=== PATIENT | female | born 1965 | race Caucasian/White ===

== ENCOUNTER → 2016-05-11 | Outpatient (CLI) | payer BC ==
[~2016-05-11] MED LIST: CETI10TA84 PO; ETAN50IN2 SC; ETAN50IN3 SQ; HYDR12.56 PO; LOSA100T65 PO; LOSA50TA6 PO; MULT-506 PO; NAPR-201 PO; NORT25CA PO; NRV/5 PO; PRT/40 PO; TEMA15CA4 PO
--- NOTE | 2016-05-11 10:42 | DIAGNOSTIC IMAGING REPORT ---
TWO VIEW CHEST CLINICAL HISTORY: Acute bronchitis. FINDINGS: PA and lateral chest radiographs are compared to study dated 03/16/2016. The cardiomediastinal silhouette is unremarkable. The there is patchy airspace consolidation identified at the left lung base. This is best seen on the lateral projection. The right lung is grossly clear. No pleural effusion is identified. Calcified granulomas are observed. There is no pneumothorax. The bony thorax appears intact. IMPRESSION: There is left basilar airspace consolidation typical in appearance for pneumonia. Radiographic follow-up to resolution is recommended. Electronically signed by: Hilario Jo M.D. 05/11/2016 10:41 AM Dictated Date/Time: 05/11/2016 10:39 AM
== END | disposition home or self-care (01) ==
LOC: C.RAD1850 10:28
PROVIDERS: ATTEND Nurse Practitioner Family
DX: J20.9 Acute bronchitis, unspecified (principal); D89.9 Disorder involving the immune mechanism, unspecified; J39.3 Upper respiratory tract hypersensitivity reaction, site unspecified; R06.02 Shortness of breath; M06.9 Rheumatoid arthritis, unspecified; R06.2 Wheezing; J00 Acute nasopharyngitis [common cold]

== ENCOUNTER → 2016-07-16 | Outpatient (CLI) | payer BC ==
--- NOTE | 2016-07-16 17:26 | DIAGNOSTIC IMAGING REPORT ---
CHEST 2 VIEWS ROUTINE HISTORY: COUGH COMPARISON: Chest 05/11/2016. FINDINGS: Stable calcified granuloma within the left upper lobe. There is also a punctate calcified granuloma within the right upper lobe. No focal lung consolidations to suggest pneumonia. No evidence for pulmonary edema. No pleural effusions. No pneumothorax. The heart is stable in size. Tortuous thoracic aorta, unchanged. IMPRESSION: No acute process. Electronically signed by: Hemal Peralta M.D. 07/16/2016 5:24 PM Dictated Date/Time: 07/16/2016 5:22 PM
== END | disposition home or self-care (01) ==
LOC: C.RAD 17:07
PROVIDERS: ATTEND Family Medicine
DX: R05 Cough (principal)

== ENCOUNTER → 2016-08-23 | Outpatient (CLI) | payer BC ==
[~2016-08-23] MED LIST changes: +AMLO-114 PO; +BUSP5TAB59 PO; +CRG625 PO; +HYDR25TA4 PO; +NRT/25 PO; +PANT40TA2 PO; +PROM25TA16 PO; -PRT/40 PO
--- NOTE | 2016-08-23 14:54 | DIAGNOSTIC IMAGING REPORT ---
RIGHT HAND MIN 3 VIEWS CLINICAL HISTORY: Right hand pain status post trauma COMPARISON: None. DISCUSSION: No fractures or dislocations are visualized. IMPRESSION: No fractures or dislocations identified. Electronically signed by: Rafi Freeman M.D. 08/23/2016 2:52 PM Dictated Date/Time: 08/23/2016 2:51 PM
== END | disposition home or self-care (01) ==
LOC: C.RDSM 15:21
PROVIDERS: ATTEND Internal Medicine
DX: M79.641 Pain in right hand (principal)

== ENCOUNTER 2016-12-08 10:55 | Emergency (ER) | payer BC ==
[~2016-12-08] VITALS: Ht 154.9 cm; Wt 88.4 kg
[~2016-12-08 10:55] MED LIST changes: -AMLO-114 PO; -BUSP5TAB59 PO; -CETI10TA84 PO; -CRG625 PO; -ETAN50IN3 SQ; -HYDR25TA4 PO; -LOSA100T65 PO; -NRT/25 PO; -NRV/5 PO; -PANT40TA2 PO; -PROM25TA16 PO; +PRT/40 PO
[2016-12-08] MEDS ORDERED: LABETALOL HCL IV 5 MG/ML 20ML IV STA (11:14)
[2016-12-08 11:19] VITALS: Ht 154.9 cm; Wt 88.4 kg
[2016-12-08] MEDS ORDERED: NRV/5 PO (11:22)
[2016-12-08] MEDS ORDERED: ETAN50IN3 SQ (11:25)
[2016-12-08] MEDS ORDERED: LOSA100T65 PO (11:25)
[2016-12-08] MEDS ORDERED: CETI10TA84 PO (11:27)
[2016-12-08 11:35] LABS: BASO % 0.5 %; BASO ABS # 0.04 K/uL (0-0.2); COMPLETE YES; EOS % 2.5 %; HEMATOCRIT 42.5 % (37-47); IG% 0.3 %; LYMPH % 27.1 %; LYMPH ABS # 2.14 K/uL (1.2-3.4); MEAN CELL VOLUME 86.9 fL (80-100); MEAN CORPUSCULAR HEMOGLOBIN 30.9 pg (25-34); MEAN CORPUSCULAR HGB CONC 35.5 g/dl (32-36); MEAN PLATELET VOLUME 8.7 fL (7.4-10.4); MONO % 6.8 %; NEUT % 62.8 %; PLATELET COUNT 246 K/uL (130-400); RED BLOOD COUNT 4.89 M/uL (4.2-5.4); WHITE BLOOD COUNT 7.91 K/uL (4.8-10.8)
[2016-12-08 11:43] LABS: BUN/CREATININE RATIO 19.1 (10-20); CALCIUM 9.5 mg/dl (8.5-10.1); CREATININE 0.77 mg/dl (0.60-1.20); POTASSIUM 3.5 mmol/L (3.5-5.1)
[2016-12-08 11:54] LABS: CKMB/CK RATIO 1.1 (0-3.0); THYROID STIMULATING HORMONE 1.2 uIu/ml (0.300-4.500)
--- NOTE | 2016-12-08 11:54 | DIAGNOSTIC IMAGING REPORT ---
CHEST ONE VIEW PORTABLE CLINICAL HISTORY: Atypical chest pain and left arm pain. COMPARISON STUDY: 07/16/2016 FINDINGS: The heart is normal in size. There is aortic tortuosity. There is no failure. There is no focal pulmonary consolidation. There are no pleural effusions.[ IMPRESSION: No active disease in the chest. Electronically signed by: Rafi Freeman M.D. 12/08/2016 11:52 AM Dictated Date/Time: 12/08/2016 11:52 AM
--- NOTE | 2016-12-08 12:14 | EMERGENCY ROOM VISIT NOTE ---
History Report prepared by Patrice: Monique Russell Under the Supervision of: Dr. Iram Stanford M.D. First contact with patient: 11:08 Stated Complaint: ARM PAIN History of Present Illness The patient is a 51 year old female who presents to the Emergency Room with complaints of worsening left arm pain for the past few days. She developed tenderness and tightness to the inside of her left arm. She states that her pain started in her left armpit and now she is feeling very tight in her arm. The area is tender to push on it. She rates her pain as a 2/10 in severity. She denies any lumps. The patient denies any recent trauma or injury to the arm. She was shopping this morning and just felt "off." She reports family history of heart disease in young individuals. She became concerned that she was experiencing cardiac symptoms, so she went to a [id number]. The patient had an ECG done and was given aspirin. She was advised to come to the ED for further evaluation. The patient denies fever, cough, chest pain, shortness of breath, and abdominal pain. She denies any personal history of DVT or DM. She does not smoke or use OCP. She does have a history of RA and HTN. She took her usual medications today. Source of History: patient Onset: a few days ago Position: arm (left) Symptom Intensity: 2/10 Quality: other (tightness) Timing: worsening Modifying Factors (Worsening): other (palpation) Associated Symptoms: No fevers, No cough, No chest pain, No SOB, No abdominal pain Review of Systems See HPI for pertinent positives & negatives. A total of 10 systems reviewed and were otherwise negative. Past Medical & Surgical Medical Problems: (1) Deliveries by (2) IRON DEFIC ANEMIA NOS Family History FH: heart attack Social History Smoking Status: Never Smoker Alcohol Use: occasionally Marital Status: Housing Status: lives with family Occupation Status: employed Current/Historical Medications Scheduled Amlodipine Besylate (Amlodipine Besylate), 5 MG PO DAILY Cetirizine (Zyrtec), 10 MG PO QAM Etanercept (Enbrel Sureclick), 50 MG SQ WK Hydrochlorothiazide (Hctz), 12.5 MG PO QAM Losartan Potassium (Cozaar), 100 MG PO QAM Multivitamin (Multivitamin), 1 TAB PO QAM Nortriptyline (Pamelor), 25 MG PO HS Pantoprazole (Pantoprazole Sodium), 40 MG PO DAILY Scheduled PRN Temazepam (Restoril), 15 MG PO HS PRN for Headache Allergies Coded Allergies: No Known Allergies (Unverified , 12/08/16) Physical Exam Vital Signs Date Time Temp Pulse Resp B/P (MAP) Pulse Ox O2 Delivery O2 Flow Rate FiO2 12/08/16 13:30 36.7 95 17 132/94 92 12/08/16 13:15 95 17 132/94 92 12/08/16 13:10 97 10 98 12/08/16 13:05 94 10 99 12/08/16 13:00 94 10 128/85 99 12/08/16 12:55 92 10 99 12/08/16 12:50 93 11 100 12/08/16 12:45 91 9 118/83 97 12/08/16 12:40 91 6 99 12/08/16 12:35 94 13 99 12/08/16 12:30 91 12 124/85 97 12/08/16 12:25 91 19 95 12/08/16 12:20 93 12 96 12/08/16 12:15 90 10 117/80 99 12/08/16 12:10 88 12 100 12/08/16 12:05 104 29 12/08/16 12:00 80 9 141/98 99 12/08/16 11:55 86 12 99 12/08/16 11:52 144/94 12/08/16 11:50 82 13 100 12/08/16 11:46 138/95 12/08/16 11:45 80 18 100 12/08/16 11:42 142/86 12/08/16 11:41 132/94 12/08/16 11:40 101 20 100 12/08/16 11:35 110 11 100 12/08/16 11:32 100 Room Air 12/08/16 11:30 113 17 100 12/08/16 11:25 110 13 100 12/08/16 11:20 114 15 100 12/08/16 11:19 36.7 109 20 166/103 100 Room Air 12/08/16 11:18 166/103 12/08/16 11:15 112 12 99 12/08/16 11:10 106 10 100 12/08/16 11:05 118 12/08/16 11:05 118 15 99 12/08/16 10:57 176/107 Physical Exam Vital signs reviewed. Noted to be hypertensive. General: Well-appearing 51 year old female, in no significant distress. HEENT: No scleral icterus, PERRLA, neck supple. Atraumatic. Cardiovascular: Regular rate and rhythm, no extra sounds. Pulmonary: Clear to auscultation bilaterally, normal work of breathing. Abdomen: Soft, obese, nontender, nondistended, positive bowel sounds. Musculoskeletal: Atraumatic, no peripheral edema. Neurologic: Patient awake alert and oriented x 3, full strength in all 4 extremities. Cranial nerves 2 through 12 grossly intact. Skin: Warm, dry, no rash Medical Decision & Procedures ER Provider Diagnostic Interpretation: Radiology results as stated below per my review and radiologist interpretation: CHEST ONE VIEW PORTABLE CLINICAL HISTORY: Atypical chest pain and left arm pain. COMPARISON STUDY: 07/16/2016 FINDINGS: The heart is normal in size. There is aortic tortuosity. There is no failure. There is no focal pulmonary consolidation. There are no pleural effusions.[ IMPRESSION: No active disease in the chest. Electronically signed by: Rafi Freeman M.D. 12/08/2016 11:52 AM Dictated Date/Time: 12/08/2016 11:52 AM Laboratory Results 12/08/16 11:00 Red Blood Count 4.89, Mean Corpuscular Volume 86.9, Mean Corpuscular Hemoglobin 30.9, Mean Corpuscular Hemoglobin Concent 35.5, Mean Platelet Volume 8.7, Neutrophils (%) (Auto) 62.8, Lymphocytes (%) (Auto) 27.1, Monocytes (%) (Auto) 6.8, Eosinophils (%) (Auto) 2.5, Basophils (%) (Auto) 0.5, Neutrophils # (Auto) 4.97, Lymphocytes # (Auto) 2.14, Monocytes # (Auto) 0.54, Eosinophils # (Auto) 0.20, Basophils # (Auto) 0.04 12/08/16 11:00 Test 12/08/16 11:00 White Blood Count 7.91 K/uL (4.8-10.8) Red Blood Count 4.89 M/uL (4.2-5.4) Hemoglobin 15.1 g/dL (12.0-16.0) Hematocrit 42.5 % (37-47) Mean Corpuscular Volume 86.9 fL (80-100) Mean Corpuscular Hemoglobin 30.9 pg (25-34) Mean Corpuscular Hemoglobin Concent 35.5 g/dl (32-36) Platelet Count 246 K/uL (130-400) Mean Platelet Volume 8.7 fL (7.4-10.4) Neutrophils (%) (Auto) 62.8 % Lymphocytes (%) (Auto) 27.1 % Monocytes (%) (Auto) 6.8 % Eosinophils (%) (Auto) 2.5 % Basophils (%) (Auto) 0.5 % Neutrophils # (Auto) 4.97 K/uL (1.4-6.5) Lymphocytes # (Auto) 2.14 K/uL (1.2-3.4) Monocytes # (Auto) 0.54 K/uL (0.11-0.59) Eosinophils # (Auto) 0.20 K/uL (0-0.5) Basophils # (Auto) 0.04 K/uL (0-0.2) RDW Standard Deviation 39.8 fL (36.4-46.3) RDW Coefficient of Variation 12.5 % (11.5-14.5) Immature Granulocyte % (Auto) 0.3 % Immature Granulocyte # (Auto) 0.02 K/uL (0.00-0.02) Anion Gap 9.0 mmol/L (3-11) Est Creatinine Clear Calc Drug Dose 85.4 ml/min Estimated GFR () 102.2 Estimated GFR (Non- 88.2 BUN/Creatinine Ratio 19.1 (10-20) Calcium Level 9.5 mg/dl (8.5-10.1) Total Bilirubin 0.6 mg/dl (0.2-1) Direct Bilirubin 0.1 mg/dl (0-0.2) Aspartate Amino Transf (AST/SGOT) 25 U/L (15-37) Alanine Aminotransferase (ALT/SGPT) 43 U/L (12-78) Alkaline Phosphatase 81 U/L (45-117) Total Creatine Kinase 65 U/L (26-192) Creatine Kinase MB 0.7 ng/ml (0.5-3.6) Creatine Kinase MB Ratio 1.1 (0-3.0) Total Protein 8.3 gm/dl (6.4-8.2) Albumin 4.5 gm/dl (3.4-5.0) Thyroid Stimulating Hormone (TSH) 1.200 uIu/ml (0.300-4.500) Laboratory results per my review. 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 The patient was evaluated in room B4B. A complete history and physical examination was performed. 1114: Labetalol HCl 10 mg IV 1313: I reassessed the patient at this time. She is feeling better and resting comfortably. I discussed the results and treatment plan with the patient. I answered all pertaining questions that she had. She expressed understanding and verbalized agreement. The patient will be discharged home. Medical Decision Differential diagnoses includes acute coronary syndrome, pulmonary embolus, aortic dissection, musculoskeletal pain, pneumonia, pleural effusion, pneumothorax, gastritis, peptic ulcer disease. This pt was evaluated and appeared to be anxious but in no distress. IV access was obtained and lab work was drawn. Pt was placed on the electronic device monitor. EKG reveals old injury, but no evidence of acute ischemia. CXR is clear. Pt responded well to IV labetolol. She did receive [employer]. Cardiac enzymes are negative, ddimer is negative. Pt states she started norvasc 5 mg q hs a few weeks ago and has f/u next week with PCP. She was advised to increase norvasc to 10 mg q hs and f/u as scheduled. She is likely having symptomatic HTN. She will return to the ED for worsening of symptoms or any medical concerns. Medication Reconcilliation Current Medication List: was personally reviewed by me Blood Pressure Screening Patient's blood pressure: Elevated blood pressure Blood pressure disposition: Referred to PCP Impression Primary Impression: Hypertensive urgency Scribe Attestation The scribe's documentation has been prepared under my direction and personally reviewed by me in its entirety. I confirm that the note above accurately reflects all work, treatment, procedures, and medical decision making performed by me. Departure Information Dispostion Home / Self-Care Referrals No Doctor, Assigned (PCP) Forms IMPORTANT VISIT INFORMATION Additional Instructions Diagnosis: Hypertensive urgency Continue your medications as prescribed, increase the Norvasc to 10 mg daily. Maintain a low-sodium diet. Follow-up with your primary care provider this week for blood pressure recheck and medication management. Return to the ER for worsening of symptoms or any medical concerns.
[2016-12-08 13:30] VITALS: BP 132/94; PULSE 95; TEMP 36.7; O2SAT 92
[2016-12-10 09:17] LABS: POINT OF CARE TROPONIN I < 0.030 ng/ml (0-0.045)
== END 2016-12-08 13:30 | disposition home or self-care (01) ==
LOC: EDBD 10:55 → C.EDB 10:56
DX: I16.0 Hypertensive urgency (principal); I10 Essential (primary) hypertension; Z98.891 History of uterine scar from previous surgery; Z82.49 Family history of ischemic heart disease and other diseases of the circulatory system; Z79.899 Other long term (current) drug therapy

== ENCOUNTER → 2016-12-20 | Outpatient (CLI) | payer BC ==
[~2016-12-20] MED LIST changes: +CETI10TA84 PO; -ETAN50IN2 SC; +ETAN50IN3 SQ; +LOSA100T65 PO; -LOSA50TA6 PO; -NAPR-201 PO; +NRV/5 PO
--- NOTE | 2016-12-20 16:55 | DIAGNOSTIC IMAGING REPORT ---
PELVIS NO IV/ORAL CONT (CT) CLINICAL HISTORY: 51 years-old Female presenting with RIGHT PELVIC PAIN. TECHNIQUE: Multidetector CT of the pelvis was performed without the use of intravenous contrast. IV contrast: None. A dose lowering technique was used consistent with the principles of ALARA (as low as reasonably achievable). COMPARISON: None. CT DOSE (mGy.cm): The estimated cumulative dose is 457.50 mGy.cm. FINDINGS: Rn Quality topogram: Unremarkable. Bladder: Incompletely evaluated secondary to underdistention. Pelvic organs: Uterus surgically absent. Cystic 4.2 cm x 4.1 cm lesion in the right adnexa has an apparent mildly thick wall, although evaluation is limited by absence of intravenous contrast. The left ovary is normal appearing no normal-appearing right ovarian parenchyma is appreciated. This appears to abuts the rectosigmoid serosa and cecum. Postsurgical changes in the cul-de-sac from prior hysterectomy. Bowel: The rectosigmoid junction and mid sigmoid colon have somewhat tethered appearance, likely postsurgical adhesions. No bowel obstruction. Appendix not visualized. Peritoneal cavity: No free fluid or intraperitoneal gas. Vasculature: Normal noncontrast appearance of the iliac vessels. Lymph nodes: No enlarged lymph nodes in the pelvis. Abdominal wall: Normal. Musculoskeletal: Normal. IMPRESSION: 1. 4.2 cm cystic-appearing lesion in the right adnexa is likely ovarian in origin and appears somewhat thick-walled. This is a suspicious morphology and is incompletely evaluated in the absence of intravenous contrast. Further evaluation with pelvic ultrasound and gynecologic consultation to be considered. The report will be called/faxed according to standard departmental protocol. Electronically signed by: Mohan Degroot M.D. 12/20/2016 4:53 PM Dictated Date/Time: 12/20/2016 4:47 PM
== END | disposition home or self-care (01) ==
LOC: C.CTS 16:29
PROVIDERS: ATTEND Family Medicine
DX: R10.2 Pelvic and perineal pain (principal)

== ENCOUNTER → 2016-12-21 | Outpatient (CLI) | payer BC ==
--- NOTE | 2016-12-21 08:46 | DIAGNOSTIC IMAGING REPORT ---
PELVIC ULTRASOUND, TRANSABDOMINAL AND TRANSVAGINAL HISTORY: Right-sided pelvic pain. OVARIAN MASS NOTED ON CT SCAN COMPARISON: Pelvis CT 12/20/2016. FINDINGS: Uterus: Surgically absent. Right ovary: 5.0 x 4.4 x 3.4 cm. Left ovary: Obscured by overlying bowel gas. A 3.6 x 3.6 x 3.1 cm cystic lesion within the right ovary which demonstrates internal septations. There is also a 1.2 cm cyst within the right ovary. Normal color flow within the right ovary. Miscellaneous:Trace pelvic free fluid IMPRESSION: There are 2 cystic lesions within the right ovary with the largest measuring 3.6 cm. This contains internal septations and favors a complicated/hemorrhagic cyst. An endometrioma could also a similar appearance. However, this could be pathologic if the patient is postmenopausal. 2- 3 month pelvic ultrasound follow-up is recommended to ensure resolution. Gynecologic consultation is also recommended. Electronically signed by: Hemal Peralta M.D. 12/21/2016 8:44 AM Dictated Date/Time: 12/21/2016 8:41 AM
== END | disposition home or self-care (01) ==
LOC: C.ULTR 07:41
PROVIDERS: ATTEND Family Medicine
DX: N83.9 Noninflammatory disorder of ovary, fallopian tube and broad ligament, unspecified (principal); R10.2 Pelvic and perineal pain

== ENCOUNTER → 2017-02-07 | Outpatient (CLI) | payer BC | END | disposition home or self-care (01) | LOC: C.LAB1850 10:29 | PROVIDERS: ATTEND Obstetrics & Gynecology | DX: N83.209 Unspecified ovarian cyst, unspecified side (principal) ==

== ENCOUNTER 2017-03-23 18:15 | Emergency (ER) | payer BC ==
[~2017-03-23] VITALS: Ht 157.5 cm; Wt 82.6 kg
[~2017-03-23 18:15] MED LIST changes: +PANT40TA2 PO; -PRT/40 PO
[2017-03-23 18:18] VITALS: TEMP 36.8; Ht 157.5 cm; Wt 82.6 kg
[2017-03-23] MEDS ORDERED: GI COCKTAIL PO STA (18:45)
[2017-03-23 18:46] VITALS: O2SAT 98
[2017-03-23] MEDS ORDERED: ALUMINUM/MAGNESIUM SUSP 30 ML UDC ONE (18:51)
[2017-03-23] MEDS ORDERED: LIDOCAINE HCL 2% VISC SOLN 20 ML UDC ONE (18:51)
[2017-03-23 19:03] LABS: BASO % 0.4 %; BASO ABS # 0.04 K/uL (0-0.2); COMPLETE YES; EOS % 3.4 %; HEMATOCRIT 43.2 % (37-47); IG% 0.1 %; LYMPH % 28.1 %; LYMPH ABS # 2.51 K/uL (1.2-3.4); MEAN CELL VOLUME 87.6 fL (80-100); MEAN CORPUSCULAR HGB CONC 34.3 g/dl (32-36); MEAN PLATELET VOLUME 8.9 fL (7.4-10.4); MONO % 6.6 %; NEUT % 61.4 %; PLATELET COUNT 225 K/uL (130-400); RED BLOOD COUNT 4.93 M/uL (4.2-5.4); WHITE BLOOD COUNT 8.94 K/uL (4.8-10.8)
--- NOTE | 2017-03-23 19:10 | DIAGNOSTIC IMAGING REPORT ---
CHEST ONE VIEW PORTABLE CLINICAL HISTORY: Atypical chest pain COMPARISON STUDY: 12/08/2016 FINDINGS: The cardiac and mediastinal contours remain stable. There is stable aortic tortuosity/ectasia. There is no failure. There is no focal pulmonary consolidation. There are no pleural effusions.[ IMPRESSION: No active disease in the chest. Electronically signed by: Rafi Freeman M.D. 03/23/2017 7:09 PM Dictated Date/Time: 03/23/2017 7:08 PM
[2017-03-23 19:17] LABS: PARTIAL THROMBOPLASTIN RATIO 1.1; PROTHROMBIN TIME (PATIENT) 10.7 SECONDS (9.0-12.0)
[2017-03-23 19:22] LABS: BUN/CREATININE RATIO 21.8 (10-20); CREATININE 0.67 mg/dl (0.60-1.20)
[2017-03-23 19:31] LABS: ALB/GLOB RATIO 1.1 (0.9-2); CKMB/CK RATIO 1.5 (0-3.0); THYROID STIMULATING HORMONE 3.03 uIu/ml (0.300-4.500)
[2017-03-23] MEDS ORDERED: NRT/25 PO (19:42)
[2017-03-23] MEDS ORDERED: PROM25TA16 PO (19:42)
[2017-03-23] MEDS ORDERED: CRG625 PO (19:42)
[2017-03-23] MEDS ORDERED: OXYCODONE HCL IR 5 MG TAB (IMMEDIATE RELEASE) PO STA (19:53)
[2017-03-23] MEDS ORDERED: CARVEDILOL 6.25 MG TAB PO STA (19:54)
[2017-03-23 20:12] LABS: MANUAL MICROSCOPIC REQUIRED? NO; REVIEW REQ? NO; URINE APPEARANCE CLEAR (CLEAR); URINE BILIRUBIN NEG (NEG); URINE COLOR YELLOW; URINE NITRITE NEG (NEG); URINE PH 6.5 (4.5-7.5); URINE SPECIFIC GRAVITY 1.011 (1.000-1.030); UROBILINOGEN NEG (NEG); ZZUR CULT IF INDIC CLEAN CATCH NO
[2017-03-23] MEDS ORDERED: POTASSIUM CHLORIDE 10 MEQ TABCR PO STA (21:25)
[2017-03-23 21:47] VITALS: BP 148/100; PULSE 95; O2SAT 95
--- NOTE | 2017-03-23 21:49 | EMERGENCY ROOM VISIT NOTE ---
History First contact with patient: 18:23 Chief Complaint: CHEST PAIN Stated Complaint: HIGH BLOOD PRESSURE, CHEST TIGHTNESS Nursing Triage Summary: Pt of middle of chest pain that began a brief time ago, but it could be acid reflux from nachos. Concerned because BP has been going up and was 170/120 at home. Takes BP meds and they've been changing them. Headache History of Present Illness The patient is a 51 year old female who presents to the Emergency Room via private vehicle accompanied by male with complaints of "high blood pressure, chest tightness". The patient states that tonight around 5:30 PM she developed substernal chest tightness shortly after eating not shows and cheese. She is concerned it could be reflux but because of her high blood pressure in the 150/ 100 region it could be heart related therefore prompting her visit here today. She states that she recently had an echo performed shortly after her visit here in December secondary to be hypertensive urgency. She believes that it was normal. She states that she sees a grease monkey as well as her family doctor. They have been adjusting her blood pressure medication. She unfortunately did have a very successful blood pressure medication but it caused side effects such as reflux therefore she was switched and since then has been experiencing some troubles managing her blood pressure. She denies any history of blood clots or heart problems. Review of Systems A complete 10-point Review of Systems was discussed with the patient, with pertinent positives and negatives listed in the History of Present Illness. All remaining Review of Systems questions can be considered negative unless otherwise specified. Past Medical/Surgical History Medical Problems: (1) Deliveries by (2) IRON DEFIC ANEMIA NOS Family History FH: heart attack Social History Smoking Status: Never Smoker Alcohol Use: occasionally Marital Status: Housing Status: lives with family Occupation Status: employed Current/Historical Medications Scheduled Carvedilol (Carvedilol), 6.25 MG PO BID Cetirizine (Zyrtec), 10 MG PO QAM Etanercept (Enbrel Sureclick), 50 MG SQ WK Hydrochlorothiazide (Hctz), 12.5 MG PO QAM Losartan Potassium (Cozaar), 100 MG PO QAM Multivitamin (Multivitamin), 1 TAB PO QAM Nortriptyline Hcl (Pamelor), 25 MG PO HS Pantoprazole (Pantoprazole Sodium), 40 MG PO DAILY Scheduled PRN Promethazine HCl (Promethazine HCl), 25 MG PO UD PRN for Migraine Physical Exam Vital Signs Date Time Temp Pulse Resp B/P (MAP) Pulse Ox O2 Delivery O2 Flow Rate FiO2 03/23/17 21:47 95 20 148/100 95 Room Air 03/23/17 20:47 95 18 152/94 97 Room Air 03/23/17 20:00 99 18 143/104 96 Room Air 03/23/17 19:29 106 03/23/17 18:46 98 Room Air 03/23/17 18:18 94 Room Air 03/23/17 18:18 36.8 110 20 189/109 99 Room Air Physical Exam VITAL SIGNS - Vital signs and nursing notes were reviewed. Stable. Hypertensive and tachycardic. GENERAL -51-year-old female appearing her stated age who is in no acute distress. Communicates well with provider and answers questions appropriately. SKIN - Without rashes. No petechiae rashes. HEAD - NC/AT. EYES - Sclera anicteric. EARS - No deformities of external structures noted on gross examination bilaterally. NOSE - Midline and without cyanosis. No epistaxis or purulent drainage noted. MOUTH/OROPHARYNX - Without perioral cyanosis. LUNGS - Chest wall symmetric without accessory muscle use, intercostals retractions, or central cyanosis. Normal vesicular breath sounds CTA B/L. No wheezes, rales, or rhonchi appreciated. CARDIAC - RRR with S1/S2. No murmur, rubs, or gallops appreciated. Anterior chest pain is not reproducible upon palpation. ABDOMEN - Abdominal contour normal without pulsations or visible masses. BS normoactive all four quadrants. No tenderness, palpable masses, hepatosplenomegaly, or ascites noted. Medical Decision & Procedures ER Provider Diagnostic Interpretation: CHEST ONE VIEW PORTABLE CLINICAL HISTORY: Atypical chest pain COMPARISON STUDY: 12/08/2016 FINDINGS: The cardiac and mediastinal contours remain stable. There is stable aortic tortuosity/ectasia. There is no failure. There is no focal pulmonary consolidation. There are no pleural effusions.[ IMPRESSION: No active disease in the chest. Electronically signed by: Rafi Freeman M.D. 03/23/2017 7:09 PM Dictated Date/Time: 03/23/2017 7:08 PM Laboratory Results 03/23/17 18:43 Red Blood Count 4.93, Mean Corpuscular Volume 87.6, Mean Corpuscular Hemoglobin 30.0, Mean Corpuscular Hemoglobin Concent 34.3, Mean Platelet Volume 8.9, Neutrophils (%) (Auto) 61.4, Lymphocytes (%) (Auto) 28.1, Monocytes (%) (Auto) 6.6, Eosinophils (%) (Auto) 3.4, Basophils (%) (Auto) 0.4, Neutrophils # (Auto) 5.49, Lymphocytes # (Auto) 2.51, Monocytes # (Auto) 0.59, Eosinophils # (Auto) 0.30, Basophils # (Auto) 0.04 03/23/17 18:43 Test 03/23/17 18:43 03/23/17 18:50 03/23/17 20:03 03/23/17 20:41 White Blood Count 8.94 K/uL (4.8-10.8) Red Blood Count 4.93 M/uL (4.2-5.4) Hemoglobin 14.8 g/dL (12.0-16.0) Hematocrit 43.2 % (37-47) Mean Corpuscular Volume 87.6 fL (80-100) Mean Corpuscular Hemoglobin 30.0 pg (25-34) Mean Corpuscular Hemoglobin Concent 34.3 g/dl (32-36) Platelet Count 225 K/uL (130-400) Mean Platelet Volume 8.9 fL (7.4-10.4) Neutrophils (%) (Auto) 61.4 % Lymphocytes (%) (Auto) 28.1 % Monocytes (%) (Auto) 6.6 % Eosinophils (%) (Auto) 3.4 % Basophils (%) (Auto) 0.4 % Neutrophils # (Auto) 5.49 K/uL (1.4-6.5) Lymphocytes # (Auto) 2.51 K/uL (1.2-3.4) Monocytes # (Auto) 0.59 K/uL (0.11-0.59) Eosinophils # (Auto) 0.30 K/uL (0-0.5) Basophils # (Auto) 0.04 K/uL (0-0.2) RDW Standard Deviation 39.4 fL (36.4-46.3) RDW Coefficient of Variation 12.3 % (11.5-14.5) Immature Granulocyte % (Auto) 0.1 % Immature Granulocyte # (Auto) 0.01 K/uL (0.00-0.02) Prothrombin Time 10.7 SECONDS (9.0-12.0) Prothromb Time International Ratio 1.0 (0.9-1.1) Activated Partial Thromboplast Time 29.4 SECONDS (21.0-31.0) Partial Thromboplastin Ratio 1.1 D-Dimer < 190 ug/L FEU (0-500) Anion Gap 8.0 mmol/L (3-11) Est Creatinine Clear Calc Drug Dose 96.7 ml/min Estimated GFR () 116.3 Estimated GFR (Non- 100.4 BUN/Creatinine Ratio 21.8 (10-20) Calcium Level 9.0 mg/dl (8.5-10.1) Magnesium Level 2.0 mg/dl (1.8-2.4) Total Bilirubin 0.6 mg/dl (0.2-1) Aspartate Amino Transf (AST/SGOT) 15 U/L (15-37) Alanine Aminotransferase (ALT/SGPT) 25 U/L (12-78) Alkaline Phosphatase 67 U/L (45-117) Total Creatine Kinase 52 U/L (26-192) Creatine Kinase MB 0.8 ng/ml (0.5-3.6) Creatine Kinase MB Ratio 1.5 (0-3.0) Total Protein 8.0 gm/dl (6.4-8.2) Albumin 4.2 gm/dl (3.4-5.0) Globulin 3.8 gm/dl (2.5-4.0) Albumin/Globulin Ratio 1.1 (0.9-2) Thyroid Stimulating Hormone (TSH) 3.030 uIu/ml (0.300-4.500) Bedside Troponin I < 0.030 ng/ml (0-0.045) Urine Color YELLOW Urine Appearance CLEAR (CLEAR) Urine pH 6.5 (4.5-7.5) Urine Specific [place] 1.011 (1.000-1.030) Urine Protein NEG (NEG) Urine Glucose (UA) NEG (NEG) Urine Ketones NEG (NEG) Urine Occult Blood NEG (NEG) Urine Nitrite NEG (NEG) Urine Bilirubin NEG (NEG) Urine Urobilinogen NEG (NEG) Urine Leukocyte Esterase NEG (NEG) Troponin I 0.019 ng/ml (0-0.045) Medications Administered Medications (Trade) Dose Ordered Sig/Rosaura Route Start Time Stop Time Status Last Admin Dose Admin Miscellaneous Medication (Gi Cocktail) 24 ml NOW STAT PO 03/23/17 18:45 03/23/17 18:46 DC 03/23/17 18:53 24 ML Oxycodone HCl (Roxicodone Immediate Rel Tab) 5 mg NOW STAT PO 03/23/17 19:53 03/23/17 19:54 DC 03/23/17 20:01 5 MG Carvedilol (Coreg Tab) 6.25 mg NOW STAT PO 03/23/17 19:54 03/23/17 19:55 DC 03/23/17 20:11 6.25 MG Potassium Chloride (Klor-Con M10) 40 meq NOW STAT PO 03/23/17 21:25 03/23/17 21:26 DC 03/23/17 21:47 40 MEQ Medical Decision Patient was seen and evaluated as above. She presents to us today with chest pain. Began shortly prior to arrival. Shortly is concerning for that of acid reflux however other emergent etiologies health may be entertained. Patient's bedside EKG reveals sinus tachycardia, rate of 114 bpm. There is a nonspecific ST abnormality and when compared with EKG of 12/08/2016 the PACs are no longer present. There appears to be no significant change when compared to previous EKG. There is no evidence of ST segment elevation myocardial infarction. Troponin and d-dimer were negative. Chest x-ray stable. No acute process on the chest x-ray. CBC reveals no concerning leukocytosis or anemia. Coags normal. D-dimer negative. Patient metabolic panel does reveal potassium low at 3. No evidence of kidney or liver failure. Patient troponin is negative. Troponin repeat does reveal a slight increase of 0.003. I discussed this with the attending physician and this was found to be statistically insignificant. Patient did have some relief of her pain with the GI cocktail. Again I suspect this is likely from acid reflux. Patient urine is negative. I discussed with the patient closely inpatient management versus outpatient with close follow-up and the preference was on having her go home to follow-up with the family doctor. I believe this is safe and appropriate. She is at this time believed to be at low risk given that she had a recent echocardiogram and follows with cardiology closely. Patient was educated upon management, educated upon worrisome symptoms in which to return, had questions as to discharge, and was discharged home in good condition. In evaluation treatment this patient the following differential diagnoses were entertained: SC, PE, acid reflux, pericarditis, costochondritis, among others. Impression Primary Impression: Chest pain Additional Impression: Hypokalemia Departure Information Dispostion Home / Self-Care Condition GOOD Referrals Taylor Cross (PCP) Patient Instructions [facility] Additional Instructions You have been treated in the Emergency Department your chest Pain. Laboratory results and imaging studies have ruled out any emergent causes for your chest pain which would warrant admission or surgery. I recommend continuing your prescribed medications. For pain control, you can use the following phex-ruf-hidiodp medicines (if >12 yo): - Regular strength (325mg/tab) Tylenol (acetaminophen) 2 tabs every 4-6 hours as needed. Do not exceed 12 tablets in a 24 hour period. Avoid taking more than 3 grams (3000 mg) of Tylenol per day. This includes any other sources of acetaminophen you may take on a regular basis. - Regular strength (200 mg/tab) Advil (ibuprofen) 1-2 tabs every 4-6 hours as needed. Do not exceed a dose of 3200 mg per day. Drink plenty of water and stay well hydrated. As with any trip to the Emergency Department, you should follow-up with your Primary Care Provider from today's visit. Return to the emergency department if your symptoms persist despite treatment plan outlined above or if the following symptoms occur: increased fevers, chills , worsening nausea/vomiting, blood in your stool or urine. Problem Qualifiers
== END 2017-03-23 22:03 | disposition home or self-care (01) ==
LOC: C.EDB 18:17
DX: R07.9 Chest pain, unspecified (principal); E87.6 Hypokalemia; Z98.891 History of uterine scar from previous surgery

== ENCOUNTER 2017-04-03 16:21 | Emergency (ER) | payer BC ==
[~2017-04-03] VITALS: Ht 157.5 cm; Wt 80.8 kg
[~2017-04-03 16:21] MED LIST changes: +CRG625 PO; -NORT25CA PO; +NRT/25 PO; -NRV/5 PO; +PROM25TA16 PO; -TEMA15CA4 PO
[2017-04-03 16:24] VITALS: TEMP 36.4; Ht 157.5 cm; Wt 80.8 kg
[2017-04-03 16:29] VITALS: O2SAT 97
[2017-04-03] MEDS ORDERED: LORAZEPAM 2 MG/ML 1 ML VIAL IV STA (16:30)
[2017-04-03] MEDS ORDERED: SODIUM CHLORIDE 0.9% 1000ML 1,000 ML IV STA (16:30)
--- NOTE | 2017-04-03 16:48 | DIAGNOSTIC IMAGING REPORT ---
CHEST ONE VIEW PORTABLE HISTORY: 51 years-old Female CHEST PAIN acute atypical chest pain with chest tightness COMPARISON: Chest radiograph 03/23/2017 TECHNIQUE: Portable upright AP view of the chest FINDINGS: Cardiomediastinal and hilar silhouettes are within normal limits. There is tortuosity of the thoracic aorta. There is no pneumothorax, pleural effusion, focal airspace consolidation or overt pulmonary edema. The bones of the chest are grossly intact. Degenerative changes are seen within the shoulders and spine. IMPRESSION: No acute cardiopulmonary process. The above report was generated using voice recognition software. It may contain grammatical, syntax or spelling errors. Electronically signed by: Phi Rios M.D. 04/03/2017 4:46 PM Dictated Date/Time: 04/03/2017 4:45 PM
[2017-04-03 16:49] LABS: BASO % 0.3 %; BASO ABS # 0.04 K/uL (0-0.2); COMPLETE YES; EOS % 1.1 %; HEMATOCRIT 43.3 % (37-47); IG% 0.2 %; LYMPH % 19.2 %; LYMPH ABS # 2.79 K/uL (1.2-3.4); MEAN CELL VOLUME 86.8 fL (80-100); MEAN CORPUSCULAR HEMOGLOBIN 30.7 pg (25-34); MEAN CORPUSCULAR HGB CONC 35.3 g/dl (32-36); MONO % 5.5 %; NEUT % 73.7 %; PLATELET COUNT 271 K/uL (130-400); RED BLOOD COUNT 4.99 M/uL (4.2-5.4); WHITE BLOOD COUNT 14.55 K/uL (4.8-10.8)
[2017-04-03 16:59] LABS: PROTHROMBIN TIME (PATIENT) 10.5 SECONDS (9.0-12.0)
[2017-04-03] MEDS ORDERED: AMLO-114 PO (17:09)
[2017-04-03] MEDS ORDERED: HYDR25TA4 PO (17:09)
[2017-04-03] MEDS ORDERED: BUSP5TAB59 PO (17:09)
[2017-04-03 17:15] LABS: ALT/SGPT 26 U/L (12-78); BLOOD UREA NITROGEN 17 mg/dl (7-18); BUN/CREATININE RATIO 24.2 (10-20); CALCIUM 9.8 mg/dl (8.5-10.1); CARBON DIOXIDE 25 mmol/L (21-32); CHLORIDE 99 mmol/L (98-107); CREATININE 0.72 mg/dl (0.60-1.20); GLUCOSE 111 mg/dl (70-99); MAGNESIUM 2.2 mg/dl (1.8-2.4); POTASSIUM 2.8 mmol/L (3.5-5.1); SODIUM 135 mmol/L (136-145)
--- NOTE | 2017-04-03 17:22 | EMERGENCY ROOM VISIT NOTE ---
History Report prepared by Patrice: Mary Ellen Sullivan Under the Supervision of: Dr. Gary Johnson D.O. First contact with patient: 16:25 Chief Complaint: CARDIAC ASSESSMENT Stated Complaint: HEART RATE FLUCTUATING;CHEST TIGHTNESS History of Present Illness The patient is a 51 year old female who presents to the Emergency Room with complaints of persistent heart palpitations starting earlier today. The patient has recently been having trouble with her blood pressure. Her medications are being adjusted. She is currently on amlodipine and losartan. Today she could feel her heart racing. Her Fitbit showed that her heart rate was fluctuating from high to low. It was going up into the 120s at times. She reports some chest tightness. She had some SOB earlier, but currently does not. She does feel anxious. She has been having dizzy spells. She denies any chest pain with walking, pain or swelling in the legs, diarrhea, vomiting, fever, or urinary symptoms. He denies any recent travel. She was recently started on BuSpar. She had a hysterectomy 3 years ago for fibroids. She denies any history of cancer, blood clots, AL, irregular heart beat, diabetes, or other medical problems. She admits to occasional alcohol use. She denies any tobacco use. She has had an echo before which shows a slightly leaky left ventricle. Source of History: patient, spouse/significant other Onset: earlier today Position: other (global) Quality: other (heart palpitations) Timing: other (persistent) Associated Symptoms: + chest pain, + SOB, No fevers, No vomiting, No diarrhea, No urinary symptoms Note: Pt reports dizzy spells and anxiety. Pt denies leg swelling/pain. Review of Systems See HPI for pertinent positives & negatives. A total of 10 systems reviewed and were otherwise negative. Past Medical & Surgical Medical Problems: (1) Deliveries by (2) IRON DEFIC ANEMIA NOS Family History FH: heart attack Social History Smoking Status: Never Smoker Alcohol Use: occasionally Marital Status: Housing Status: lives with family Occupation Status: employed Current/Historical Medications Scheduled Amlodipine (Norvasc), 10 MG PO HS Buspirone Hcl (Buspirone Hcl), 5 MG PO BID Cetirizine (Zyrtec), 10 MG PO QAM Etanercept (Enbrel Sureclick), 50 MG SQ WK Hydrochlorothiazide (Hctz), 25 MG PO QAM Losartan Potassium (Cozaar), 100 MG PO QAM Multivitamin (Multivitamin), 1 TAB PO QAM Nortriptyline Hcl (Pamelor), 25 MG PO HS Pantoprazole (Pantoprazole Sodium), 40 MG PO DAILY Scheduled PRN Promethazine HCl (Promethazine HCl), 25 MG PO UD PRN for Migraine Allergies Coded Allergies: No Known Allergies (Unverified , 04/03/17) Physical Exam Vital Signs Date Time Temp Pulse Resp B/P (MAP) Pulse Ox O2 Delivery O2 Flow Rate FiO2 04/03/17 19:53 96 20 115/86 97 Room Air 04/03/17 18:37 70 18 118/78 97 Room Air 04/03/17 16:40 118 04/03/17 16:29 97 Room Air 04/03/17 16:29 97 04/03/17 16:24 36.4 131 18 166/97 95 Room Air Physical Exam GENERAL: Patient is awake, alert, and in no acute distress. Patient is resting comfortably and showing no signs of anxiety EYES: The conjunctivae are clear. The pupils are round and reactive. EARS, NOSE, MOUTH AND THROAT: The nose is without any evidence of any deformity. Mucous membranes are moist tongue is midline NECK: The neck is nontender and supple. RESPIRATORY: Normal respiratory effort is noted there is no evidence of wheezing rhonchi or rales CARDIOVASCULAR: Tachycardic but regular. No definite murmur noted to auscultation. GASTROINTESTINAL: The abdomen is soft. Bowel sounds are present in all quadrants. Abdomen is nontender MUSCULOSKELETAL/EXTREMITIES: There is no evidence of gross deformity full range of motion is noted in the hips and shoulders SKIN: There is no obvious evidence of any rash. There are no petechiae, pallor or cyanosis noted. NEUROLOGIC: Patient is awake alert and oriented x3 Medical Decision & Procedures ER Provider Diagnostic Interpretation: X-ray results as stated below per interpretation by me and the radiologist. CHEST ONE VIEW PORTABLE HISTORY: 51 years-old Female CHEST PAIN acute atypical chest pain with chest tightness COMPARISON: Chest radiograph 03/23/2017 TECHNIQUE: Portable upright AP view of the chest FINDINGS: Cardiomediastinal and hilar silhouettes are within normal limits. There is tortuosity of the thoracic aorta. There is no pneumothorax, pleural effusion, focal airspace consolidation or overt pulmonary edema. The bones of the chest are grossly intact. Degenerative changes are seen within the shoulders and spine. IMPRESSION: No acute cardiopulmonary process. The above report was generated using voice recognition software. It may contain grammatical, syntax or spelling errors. Electronically signed by: Phi Rios M.D. 04/03/2017 4:46 PM Dictated Date/Time: 04/03/2017 4:45 PM Laboratory Results 04/03/17 16:35 Red Blood Count 4.99, Mean Corpuscular Volume 86.8, Mean Corpuscular Hemoglobin 30.7, Mean Corpuscular Hemoglobin Concent 35.3, Mean Platelet Volume 9.0, Neutrophils (%) (Auto) 73.7, Lymphocytes (%) (Auto) 19.2, Monocytes (%) (Auto) 5.5, Eosinophils (%) (Auto) 1.1, Basophils (%) (Auto) 0.3, Neutrophils # (Auto) 10.73, Lymphocytes # (Auto) 2.79, Monocytes # (Auto) 0.80, Eosinophils # (Auto) 0.16, Basophils # (Auto) 0.04 04/03/17 16:35 Test 04/03/17 16:35 White Blood Count 14.55 K/uL (4.8-10.8) Red Blood Count 4.99 M/uL (4.2-5.4) Hemoglobin 15.3 g/dL (12.0-16.0) Hematocrit 43.3 % (37-47) Mean Corpuscular Volume 86.8 fL (80-100) Mean Corpuscular Hemoglobin 30.7 pg (25-34) Mean Corpuscular Hemoglobin Concent 35.3 g/dl (32-36) Platelet Count 271 K/uL (130-400) Mean Platelet Volume 9.0 fL (7.4-10.4) Neutrophils (%) (Auto) 73.7 % Lymphocytes (%) (Auto) 19.2 % Monocytes (%) (Auto) 5.5 % Eosinophils (%) (Auto) 1.1 % Basophils (%) (Auto) 0.3 % Neutrophils # (Auto) 10.73 K/uL (1.4-6.5) Lymphocytes # (Auto) 2.79 K/uL (1.2-3.4) Monocytes # (Auto) 0.80 K/uL (0.11-0.59) Eosinophils # (Auto) 0.16 K/uL (0-0.5) Basophils # (Auto) 0.04 K/uL (0-0.2) RDW Standard Deviation 39.7 fL (36.4-46.3) RDW Coefficient of Variation 12.4 % (11.5-14.5) Immature Granulocyte % (Auto) 0.2 % Immature Granulocyte # (Auto) 0.03 K/uL (0.00-0.02) Prothrombin Time 10.5 SECONDS (9.0-12.0) Prothromb Time International Ratio 1.0 (0.9-1.1) Activated Partial Thromboplast Time 27.1 SECONDS (21.0-31.0) Partial Thromboplastin Ratio 1.0 Anion Gap 11.0 mmol/L (3-11) Est Creatinine Clear Calc Drug Dose 89.0 ml/min Estimated GFR () 110.8 Estimated GFR (Non- 95.6 BUN/Creatinine Ratio 24.2 (10-20) Calcium Level 9.8 mg/dl (8.5-10.1) Magnesium Level 2.2 mg/dl (1.8-2.4) Total Bilirubin 0.5 mg/dl (0.2-1) Direct Bilirubin 0.1 mg/dl (0-0.2) Aspartate Amino Transf (AST/SGOT) 18 U/L (15-37) Alanine Aminotransferase (ALT/SGPT) 26 U/L (12-78) Alkaline Phosphatase 79 U/L (45-117) Total Creatine Kinase 64 U/L (26-192) Creatine Kinase MB < 0.5 ng/ml (0.5-3.6) Creatine Kinase MB Ratio (0-3.0) Troponin I < 0.015 ng/ml (0-0.045) Total Protein 8.3 gm/dl (6.4-8.2) Albumin 4.4 gm/dl (3.4-5.0) Lipase 145 U/L (73-393) Thyroid Stimulating Hormone (TSH) 1.980 uIu/ml (0.300-4.500) Free Thyroxine 1.22 ng/dl (0.80-1.60) Laboratory results per my review. Medications Administered Medications (Trade) Dose Ordered Sig/Rosaura Route Start Time Stop Time Status Last Admin Dose Admin Sodium Chloride 1,000 ml @ 999 mls/hr Q1H1M STAT IV 04/03/17 16:30 04/03/17 17:30 DC 04/03/17 16:30 999 MLS/HR Lorazepam (Ativan Inj) 0.5 mg NOW STAT IV 04/03/17 16:30 04/03/17 16:32 DC 04/03/17 16:56 0.5 MG Potassium Chloride (Kcl 10 Meq / Wtr) 10 meq NOW STAT IV 04/03/17 17:31 04/03/17 17:32 DC 04/03/17 17:31 10 MEQ Potassium Chloride (Klor-Con M10) 20 meq NOW STAT PO 04/03/17 17:31 04/03/17 17:32 DC 04/03/17 18:12 20 MEQ Potassium Chloride 10 meq/ Prmx 100 ml @ 100 mls/hr ONE ONCE IV 04/03/17 18:30 04/03/17 19:29 DC 04/03/17 18:48 100 MLS/HR ECG Indication: palpitations Rate (beats per minute): 127 Rhythm: sinus tachycardia Findings: no ectopy, other (no acute ST segment abnormality) Comparison ECG Date: 23-Mar-2017 Change: no significant change ED Course 1627: The patient was evaluated in room A11B. A complete history and physical examination were performed. 1630: Ativan Inj 0.5 mg IV, NSS 1000 ml @ 999 mls/hr IV. 1731: Potassium Chloride 10 meq IV, Potassium Chloride 20 meq PO. 1830: Potassium Chloride 10 meq/Prmx 100 ml @ 100 mls/hr IV. 2000: Upon reevaluation, the patient is resting comfortably. I discussed the results and treatment plan with her. She verbalized agreement of the treatment plan. She was discharged home. Medical Decision Prior records/ancillary studies reviewed. Triage Nursing notes reviewed. Additional history obtained from family. The patient's history was concerning for palpitations. Differential diagnosis: Etiologies such as premature contractions, electrolyte abnormality, cardiac dysrhythmia, thyroid dysfunction, pulmonary embolism, infection, gastrointestinal, as well as others were entertained. The patient is a 51-year-old female who presented to emergency department for evaluation palpitations and chest discomfort. The patient has had similar symptoms in the past she states she's had a workup previously which was not positive for heart attack or an acute coronary syndrome. The patient was found have hypokalemia in the emergency department. The patient was treated with IV fluids and IV potassium in the emergency department. She was reevaluated multiple times. On subsequent reevaluation she was feeling much better. I discussed the patient's laboratory and radiographic studies with her and her significant other. She was encouraged to rest and avoid any strenuous activity. She was also encouraged to continue all medications as prescribed and follow-up with her primary care physician as soon as possible. Otherwise she was encouraged to return to emergency department immediately if symptoms change worsen or the need arises. Medication Reconcilliation Current Medication List: was personally reviewed by me Blood Pressure Screening Patient's blood pressure: Normal blood pressure Blood pressure disposition: Did not require urgent referral Impression Primary Impression: Palpitation Additional Impressions: Sinus tachycardia Hypokalemia Scribe Attestation The scribe's documentation has been prepared under my direction and personally reviewed by me in its entirety. I confirm that the note above accurately reflects all work, treatment, procedures, and medical decision making performed by me. Departure Information Dispostion Home / Self-Care Referrals Zach Posey M.D. (PCP) Forms IMPORTANT VISIT INFORMATION Patient Instructions ED Diet High Potassium, Heart Palpitations, [facility] Additional Instructions Call your family in the morning to schedule a follow-up appointment. Drink plenty of liquids. Rest and avoid any strenuous activity. Problem Qualifiers
[2017-04-03 17:23] LABS: ALKALINE PHOSPHATASE 79 U/L (45-117); AST/SGOT 18 U/L (15-37)
[2017-04-03] MEDS ORDERED: POTASSIUM CHLORIDE 10 MEQ TABCR PO STA (17:31)
[2017-04-03] MEDS ORDERED: POTASSIUM CHLORIDE 10 MEQ / 100ML WTR IV STA (17:31)
[2017-04-03] MEDS ORDERED: POTASSIUM CHLR 10MEQ / WTR IV ONE (18:30)
[2017-04-03 19:53] VITALS: BP 115/86; PULSE 96; O2SAT 97
== END 2017-04-03 20:03 | disposition home or self-care (01) ==
LOC: C.EDB 16:22 → C.EDA 20:03
DX: R00.2 Palpitations (principal); E87.6 Hypokalemia; Z90.710 Acquired absence of both cervix and uterus; Z79.899 Other long term (current) drug therapy

== ENCOUNTER → 2017-05-17 | Outpatient (CLI) | payer OTHER ==
[~2017-05-17] MED LIST changes: +AMLO-114 PO; +BUSP5TAB59 PO; -CRG625 PO; -HYDR12.56 PO; +HYDR25TA4 PO
--- NOTE | 2017-05-20 14:47 | MAMMOGRAPHY REPORT ---
BILATERAL DIGITAL SCREENING MAMMOGRAM TOMOSYNTHESIS WITH CAD: 05/17/2017 CLINICAL HISTORY: Routine screening. TECHNIQUE: Breast tomosynthesis in addition to standard 2D mammography was performed. Current study was also evaluated with a Computer Aided Detection (CAD) system. COMPARISON: Comparison is made to exams dated: 04/03/2016 mammogram, 03/28/2015 mammogram, 4 mammogram, 03/25/2013 mammogram, 03/17/2012 mammogram, and 08/21/2010 mammogram - [facility]. BREAST COMPOSITION: The tissue of both breasts is heterogeneously dense, which may obscure small mas ses. FINDINGS: No suspicious masses, calcifications, or areas of architectural distortion are noted in ei ther breast. There has been no significant interval change compared to prior exams. Bilateral asymme tries and bilateral benign-appearing calcifications are not significantly changed. A biopsy marker c lip is again seen within the right upper inner breast IMPRESSION: ACR BI-RADS CATEGORY 2: BENIGN There is no mammographic evidence of malignancy. A 1 year screening mammogram is recommended. The pa tient will receive written notification of the results. Approximately 10% of breast cancers are not detected with mammography. A negative mammographic report should not delay biopsy if a clinically suggestive mass is present. Joselin Reyna M.D. /:05/17/2017 16:22:35 Final Cleaner: Justin MISTRY(R)(M), [facility] letter sent: Normal 1/2 BI-RADS Code: ACR BI-RADS Category 2: Benign
== END | disposition home or self-care (01) ==
LOC: C.MAMM 14:44
PROVIDERS: ATTEND Obstetrics & Gynecology
DX: Z12.31 Encounter for screening mammogram for malignant neoplasm of breast (principal)

== ENCOUNTER → 2017-09-12 | Outpatient (CLI) | payer OTHER ==
--- NOTE | 2017-09-12 15:49 | DIAGNOSTIC IMAGING REPORT ---
ABD WITH ORAL CONT ONLY (CT) CLINICAL HISTORY: 52 years-old Female presenting with constipation, bloating, severe abdominal pain. TECHNIQUE: Multidetector CT of the abdomen was performed after the administration of oral contrast only. IV contrast: None. A dose lowering technique was used consistent with the principles of ALARA (as low as reasonably achievable). COMPARISON: 02/24/2013. CT DOSE (mGy.cm): The estimated cumulative dose is 531.93 mGycm. 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 Lung bases: 4 mm solid nodule in the periphery of the right middle lobe (series 3 image 18). Cyst noted in the right middle lobe. 4 mm solid subpleural nodule in the left lower lobe (series 3 image 40). Additional adjacent subpleural and peripheral punctate nodules. Normal heart size. No pericardial or pleural effusion. Liver: Normal morphology. Normal density. Biliary: No gross biliary ductal dilatation allowing for noncontrast technique. Normal gallbladder. Pancreas: Normal noncontrast appearance. Spleen: Normal noncontrast appearance. Adrenal glands: Normal noncontrast appearance. Kidneys and ureters: Normal noncontrast appearance. No nephrolithiasis. No hydronephrosis. Normal ureters. Bowel: Duodenal diverticulum at the level of pancreatic head. Otherwise normal noncontrast appearance of the bowel in the abdomen. Nonvisualization of pelvic bowel loops. No bowel obstruction. Peritoneal cavity: No free fluid or intraperitoneal gas. Lymph nodes: No enlarged lymph nodes in the abdomen. Vasculature: Normal noncontrast appearance. Abdominal wall: Normal. Musculoskeletal: Normal. IMPRESSION: 1. No acute intra-abdominal pathology. 2. Solid pulmonary nodules measuring up to 4 mm. Follow-up per Fleischner Society 2017 criteria. Please refer to below summary of Fleischner Society 2017 recommendations for follow-up of incidental CT nodules (H Chase et al. Guidelines for management of incidental pulmonary nodules detected on CT images: From the Fleischner Society 2017. Radiology 2017; 284: 228-243.) SOLID NODULES Single nodule; size < 6 mm * Low risk patients: No routine follow-up * High risk patients: Optional CT at 12 months Single nodule; size 6-8 mm * Low risk patients: CT at 6-12 months, then consider CT at 18-24 months * High risk patients: CT at 6-12 months, then at 18-24 months Single nodule; size > 8 mm * Either low or high risk patients: Considered CT at 3 months, PET/CT, or tissue sampling Multiple nodules; size < 6 mm * Low risk patients: No routine follow up * High risk patients: Optional CT at 12 months Multiple nodules; size 6-8 mm * Low risk patients: CT at 3-6 months, then consider CT at 18-24 months * High risk patients: CT at 3-6 months, then at 18-24 months Multiple nodules; size > 8 mm * Low risk patients: CT at 3-6 months, then consider at 18-24 months * High risk patients: CT at 3-6 months, then at 18-24 months SUBSOLID NODULES Single ground-glass nodule * Nodule size < 6 mm: No routine follow-up * Nodule size > or = 6 mm: CT at 6-12 months to confirm persistence, then CT every 2 years until 5 years Single part-solid nodule * Nodule size < 6 mm: No routine follow-up * Nodules size > or = 6 mm: CT at 3-6 months to confirm persistence. If unchanged and solid component remains < 6 mm, annual CT should be performed for 5 years Multiple nodules * Nodule size < 6 mm: CT at 3-6 months. If stable, consider CT at 2 and 4 years. * Nodules size > or = 6 mm: CT at 3-6 months. Subsequent management based on the most suspicious nodule(s) NOTE: 1) These guidelines apply to incidental nodules. These guidelines do NOT apply to patients younger than 35 years, immunocompromised patients, or patients with cancer. 2) Risk categories: * Low risk patients: Minimal or absent history of smoking and/or other known risk factors * High risk patients: History of smoking, exposure to other carcinogens, emphysema, fibrosis, upper lobe location, family history of lung cancer, etc. 3) If a nodule up to 8 mm is partly solid or is ground glass, further follow-up is required after 24 months to exclude possible slow growing adenocarcinoma. Electronically signed by: Mohan Degroot M.D. 09/12/2017 3:48 PM Dictated Date/Time: 09/12/2017 3:37 PM
== END | disposition home or self-care (01) ==
LOC: C.CTS 14:25
PROVIDERS: ATTEND Nurse Practitioner Family
DX: R10.84 Generalized abdominal pain (principal); R53.81 Other malaise; R11.0 Nausea; K76.0 Fatty (change of) liver, not elsewhere classified; M06.89 Other specified rheumatoid arthritis, multiple sites; R14.0 Abdominal distension (gaseous); R68.83 Chills (without fever); D84.9 Immunodeficiency, unspecified; R91.8 Other nonspecific abnormal finding of lung field

== ENCOUNTER 2023-06-11 09:00 | Observation (INO) ==
--- NOTE | 2023-05-14 09:25 | PAT Medication Instructions ---
Medication Instructions Date of Service May 14, 2023 Home Medications multivitamin 1 tab PO QAM metoprolol succinate 25 mg capsule sprinkle, ext. release 24 hr 25 mg PO HS losartan 100 mg tablet 50 mg PO DAILY venlafaxine 37.5 mg capsule,extended release 24 hr (Effexor XR) 37.5 mg PO QAM cetirizine 5 mg tablet 5 mg PO DAILY PRN trazodone 50 mg tablet 50 mg PO HS PRN abatacept 125 mg/mL subcutaneous auto-injector (Orencia ClickJect) 125 mg subcut Q7D docusate sodium 100 mg capsule (Stool Softener) 100 mg PO DAILY PRN estradiol 10 mcg vaginal tablet (Yuvafem) 10 mcg vaginal UD pravastatin 10 mg tablet 10 mg PO HS prednisone 5 mg tablet 10 mg PO UD PRN semaglutide (weight loss) 2.4 mg/0.75 mL subcutaneous pen injector (Wegovy) 2.4 mg subcut Q7D STOP 7 days before surgery semaglutide (weight loss) 2.4 mg/0.75 mL subcutaneous pen injector (Wegovy) 2.4 mg subcut Q7D Continue as directed prednisone 5 mg tablet 10 mg PO UD PRN(if needed) ASK your prescriber and surgeon abatacept 125 mg/mL subcutaneous auto-injector (Orencia ClickJect) 125 mg subcut Q7D estradiol 10 mcg vaginal tablet (Yuvafem) 10 mcg vaginal UD DO NOT take the morning of surgery multivitamin 1 tab PO QAM losartan 100 mg tablet 50 mg PO DAILY cetirizine 5 mg tablet 5 mg PO DAILY PRN docusate sodium 100 mg capsule (Stool Softener) 100 mg PO DAILY PRN Take morning of surgery With a small sip of water, OTHERWISE NOTHING TO EAT OR DRINK AFTER MIDNIGHT: venlafaxine 37.5 mg capsule,extended release 24 hr (Effexor XR) 37.5 mg PO QAM Take evening before surgery metoprolol succinate 25 mg capsule sprinkle, ext. release 24 hr 25 mg PO HS pravastatin 10 mg tablet 10 mg PO HS trazodone 50 mg tablet 50 mg PO HS PRN(if needed) Other Notes If you have any questions please call us at [phone] or [phone] or [phone] or [phone]
--- NOTE | 2023-05-15 08:17 | Anesthesiology Consultation ---
Date of Service May 15, 2023 Assessment & Plan (1) Encounter for pre-operative examination: - cardiology office visit 12/10/22 PSH: "...tachycardia has much improved...no significant shortness of breath...with her weight loss I discussed with her that she could expect her blood pressure to come down. With her mild orthostatic symptoms I just recommended stopping her amlodipine...palpitations have pretty much resolved at this point and this was likely stress related to her job...will see her on an as needed basis..." - semaglutide instructions: Patient takes on (Saturday). Patient informed at PAT visit to stop 7 days prior to surgery- voiced understanding. Instructed last dose will be: (06/02/23). Patient advised to check with prescriber to see if alternative diabetic management changes recommended while holding semaglutide- if so, patient to call back to PAT to update chart and discuss if any further preop medication instructions needed. Outpatient joint assessment: Patient is currently scheduled for inpatient pathway. If re-evaluated and patient/surgeon requests outpatient pathway, patient is not recommended candidate for outpatient joint program from anesthesia standpoint. - Patient requests all PAT testing be faxed to [facility] PCP Dr. Santos. Chart Review Chart Review: Acceptable Risk for Surgery and Patient seen in Pre Admission Testing Teaching & Discussion Pre-Anesthesia Teaching/Discussion Notes: Instructed NPO after midnight before surgery, except medications with 15 cc of water. Medication instructions provided according to the PAT guidelines. History Surgery Operation Date: 06/11/23 10:40 Proposed Procedures p Left Total Knee Arthroplasty - Leandro Navarro MD Height/Weight Height: 5 ft 2 in Weight: 72.9 kg Allergies Allergy/AdvReac Type Severity Reaction Status Date / Time adalimumab [From Humira(CF)] Allergy Intermediate Rash and Verified 05/13/23 11:50 itching Medications Home Medications Medication Instructions Recorded Confirmed Last Taken multivitamin 1 tab PO QAM 01/15/18 05/13/23 08/13/18 07:00 metoprolol succinate 25 mg capsule 25 mg PO HS 07/29/18 05/13/23 08/13/18 21:00 sprinkle, ext. release 24 hr losartan 100 mg tablet 50 mg PO DAILY 10/03/22 05/13/23 Unknown venlafaxine 37.5 mg 37.5 mg PO QAM 10/03/22 05/13/23 Unknown capsule,extended release 24 hr (Effexor XR) cetirizine 5 mg tablet 5 mg PO DAILY PRN Allergy Symptoms 12/03/22 05/13/23 Unknown pen needle, diabetic 32 gauge x #50 ea 12/03/22 02/01/23 Unknown 1/4" (BD Ultra-Fine Micro Pen Needle) trazodone 50 mg tablet 50 mg PO HS PRN Sleep 12/03/22 05/13/23 Unknown abatacept 125 mg/mL subcutaneous 125 mg subcut Q7D 05/13/23 05/13/23 Unknown auto-injector (Wanderful MediancPromoco ClickJect) docusate sodium 100 mg capsule 100 mg PO DAILY PRN Constipation 05/13/23 05/13/23 Unknown (Stool Softener) estradiol 10 mcg vaginal tablet 10 mcg vaginal UD 05/13/23 05/13/23 Unknown (Yuvafem) pravastatin 10 mg tablet 10 mg PO HS 05/13/23 05/13/23 Unknown semaglutide (weight loss) 2.4 2.4 mg subcut Q7D weight loss 05/13/23 05/13/23 Unknown mg/0.75 mL subcutaneous pen injector (Wegovy) Past Medical History Medical History (Updated 05/15/23 @ 08:26 by Lauren Ruiz PA-C) Anxiety Sleep apnea CPAP-noncompliant Rheumatoid arthritis Prednisone 10mg daily PRN "rheumatoid flare" GERD (gastroesophageal reflux disease) controlled-no longer on meds Migraine hx Tachycardia chronic, baseline in low 100s on beta [place] Hyperlipidemia Hypertension controlled, stable per pt Patient denies h/o stroke, seizures, heart attack, heart failure, DM, blood clots/DVTs or blood transfusions. Exercise / Class Metabolic Activity II 4-5 Yardwork/Stairs/Walk up hill (denies chest discomfort or shortness of breath with 1 FOS) Past Family History Family History Father Myocardial infarction at age 80 at age 80 Hypertension Prostate cancer Mother at age 62 in MVA Diabetes Heart disease Hypertension Past Surgical History Surgical History (Updated 05/15/23 @ 08:26 by Lauren Ruiz PA-C) Nausea and vomiting after administration of anesthetic agent denies needing scop patch Hx of colonoscopy Hx of arthroscopy of right knee History of bladder surgery mid-urethral sling insertion Status post excision of lipoma History of hysterectomy History of section X2 Past Anesthesia History No Hx of Anesthesia Complications and No Family Hx of Anesthesia Complications History of PONV History of PONV (denies needing scop patch) and Hx of Motion Sickness Social History Smoking Status: Never smoker Do You Dip or Chew Tobacco: No Hx Alcohol Use: Yes Alcohol type: beer and wine alcohol intake frequency: a few times a week Hx Substance Use: Yes (medical card-now ) substance use type: former substance user Last Used Substance Other:: tried the cream in 2020, no longer using Review of Systems Patient denies chest pain, shortness of breath, dyspnea on exertion, fever, chills, cough, wheezing, or palpitations. Physical Exam Vital Signs Vitals BP 126/81 P 85 TEMP 98.4 SP02 96% on RA RESP 17 Physical Patient resting comfortably in chair in no acute distress, alert and oriented, responding appropriately throughout visit Full cervical extension range of motion without pain TMD 3.5 finger breadths Mallampati Score 3 Dentition: intact, denies chipped or loose teeth, caps/crowns, implants or bridges Lungs: normal respiratory effort. Good air movement, clear throughout to auscultation, no adventitious breath sounds Cardiac: regular rate and rhythm, no murmurs noted Carotid arteries: negative bruit bilat Lab Results Anesthesia Preop Results Results Anesthesia Widget: WBC 7.13 K/ul (4.8-10.8) 05/15/23 Hgb 13.7 g/dl (12.0-16.0) 05/15/23 Hct 41.4 % (37.0-47.0) 05/15/23 Plt 256 K/uL (130-400) 05/15/23 Na 138 mmol/L (136-145) 05/15/23 K 4.0 mmol/L (3.5-5.1) 05/15/23 Cl 104 mmol/L (98-107) 05/15/23 CO2 28 mmol/L (21-32) 05/15/23 BUN 15 mg/dl (6-23) 05/15/23 Creat 0.57 mg/dl (0.6-1.2) L 05/15/23 Glucose Level 84 mg/dl (70-99(Fasting)) 05/15/23 PT 10.9 Seconds (9.0-12.0) 05/15/23 PTT 30 Seconds (21-31) 05/15/23 INR 1.0 (0.9-1.1) 05/15/23 Blood Type O Negative 05/15/23 Antibody Screen NEGATIVE 05/15/23 Testing Electrocardiogram Date: 05/15/23 Poor data quality NSR, rate 74 bpm Low voltage QRS Old anteroseptal infarct, cited on or before 01/15/18 Chest X-Ray Date: 05/15/23 No pneumothorax. No pleural effusions. Punctate calcified granuloma within the left upper lobe, unchanged. Otherwise, the lungs are clear. The heart is normal in size. There is a tortuous thoracic aorta. No acute fractures identified. IMPRESSION: No acute process.
--- NOTE | 2023-06-08 10:07 | History & Physical Report ---
Date of Service June 08, 2023 Assessment & Plan (1) Left knee DJD: 57-year-old female with underlying rheumatoid disease with advanced bilateral knee DJD. She is failed conservative measures. The left knee is bothering more than the right she is ready to proceed with knee replacement surgery. Plan: When taken to the operating do a left total knee replacement for the risks Mente this procedure planed the patient clued but not limited to DVT PE infection neurological and vascular bleeding palm pain limb range of motion this is fairly with symptoms incomplete relief of symptoms excetra. Patient understands and desires to proceed. Informed consent was obtained. She is planning on being discharged home using a [facility] home health. She has a domestic partner which can assist in her care. Will likely put some vancomycin in the cement due to her autoimmune disease. Plan on DVT prophylaxis including thigh-high teds, SCDs, aspirin twice a day. (2) Rheumatoid arthritis: History of Present Illness Chief Complaint: . Bilateral knee pain left side greater than the right. Primary Care Provider: Geetha Santos DO . Patient is a 57-year-old female with underlying rheumatoid disease who presents for follow-up and treatment of her knees. She has a fairly long history of bilateral knee pain discomfort that is gradually gotten worse over time. She has been managed medically by Dr. 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 She has had aspirations and injection which really have not helped that much. Pains become more debilitating. The left knee bothers him more than the right. She now like to have her knees fixed. Allergies Allergy/AdvReac Type Severity Reaction Status Date / Time adalimumab [From Humira(CF)] Allergy Intermediate Rash and Verified 05/13/23 11:50 itching Home Medications Medication Instructions Recorded Confirmed Type multivitamin 1 tab PO QAM 01/15/18 05/13/23 History metoprolol succinate 25 mg capsule 25 mg PO HS 07/29/18 05/13/23 History sprinkle, ext. release 24 hr losartan 100 mg tablet 50 mg PO DAILY 10/03/22 05/13/23 History venlafaxine 37.5 mg 37.5 mg PO QAM 10/03/22 05/13/23 History capsule,extended release 24 hr (Effexor XR) cetirizine 5 mg tablet 5 mg PO DAILY PRN Allergy Symptoms 12/03/22 05/13/23 History pen needle, diabetic 32 gauge x #50 ea 12/03/22 02/01/23 History 1/4" (BD Ultra-Fine Micro Pen Needle) trazodone 50 mg tablet 50 mg PO HS PRN Sleep 12/03/22 05/13/23 History abatacept 125 mg/mL subcutaneous 125 mg subcut Q7D 05/13/23 05/13/23 History auto-injector (Orencia ClickJect) docusate sodium 100 mg capsule 100 mg PO DAILY PRN Constipation 05/13/23 05/13/23 History (Stool Softener) estradiol 10 mcg vaginal tablet 10 mcg vaginal UD 05/13/23 05/13/23 History (Yuvafem) pravastatin 10 mg tablet 10 mg PO HS 05/13/23 05/13/23 History semaglutide (weight loss) 2.4 2.4 mg subcut Q7D weight loss 05/13/23 05/13/23 History mg/0.75 mL subcutaneous pen injector (Wegovy) Past Med/Surg History Medical History Anxiety Sleep apnea CPAP-noncompliant Rheumatoid arthritis Prednisone 10mg daily PRN "rheumatoid flare" GERD (gastroesophageal reflux disease) controlled-no longer on meds Migraine hx Tachycardia chronic, baseline in low 100s on beta [place] Hyperlipidemia Hypertension controlled, stable per pt Surgical History Nausea and vomiting after administration of anesthetic agent denies needing scop patch Hx of colonoscopy Hx of arthroscopy of right knee History of bladder surgery mid-urethral sling insertion Status post excision of lipoma History of hysterectomy History of section X2 Family History Father Myocardial infarction at age 80 at age 80 Hypertension Prostate cancer Mother at age 62 in MVA Diabetes Heart disease Hypertension Social History Smoking Status: Never smoker Second Hand Exposure: Yes (hx as child); Do You Dip or Chew Tobacco: No; Hx Alcohol Use: Yes Alcohol type: beer and wine Hx Substance Use: Yes (medical card-now ) Last Used Substance Other:: tried the cream in 2021, no longer using Preferred Language: Lao Communication Ability: Effective Visual Impairment: No Limitations Inspector Integrated Circuits Required: No Beliefs That Will Affect Care: None Current Living Situation: Significant Other Feels Safe at Home: Yes Assistive Devices: CPAP Review of Systems All systems reviewed & are unremarkable except as noted in HPI & below. Physical Exam . Physical examination reveals a pleasant middle-age female but looks in pretty good health. Examination of the left knee reveal patient walks with an antalgic gait. Is got slight varus alignment to her knee. Moderate knee joint effusion. Range of motion about 5 degrees short of full extension to 105 degrees of flexion. She is pretty tight in flexion. No pain with hip motion. Constitutional WD/WN, vitals as above Neck trachea midline, no thyromegaly Respiratory normal respiratory effort, lungs clear to auscultation Cardiovascular RRR, no murmur, no edema Gastrointestinal (Abdomen) normal bowel sounds, soft, nontender, no hepatosplenomegaly Results & Data Results & Data Laboratory Results . Diagnostic Findings . X-rays of the left knee were reviewed. Shows advanced bilateral knee DJD. To complete loss of medial joint space in both knees. Sandip diffuse osteopenia. Some subchondral sclerosis. Osteophytes primarily medially. PG Care Time/CCT Total # of Minutes Spent Total Time Spent with Patient: Total time spent is greater than 50% in coordination of care (as documented) at patient's floor/unit and/or counseling patient: Coding Level of Care Code None Diagnoses Left knee DJD M17.12 Rheumatoid arthritis M06.9
[~2023-06-11 09:00] MED LIST changes: -AMLO-114 PO; -BUSP5TAB59 PO; -CETI10TA84 PO; -ETAN50IN3 SQ; -HYDR25TA4 PO; -LOSA100T65 PO; -MULT-506 PO; -NRT/25 PO; -PANT40TA2 PO; -PROM25TA16 PO; +ROPIVACAINE 0.5% 5 MG/ML 30 ML VIAL ONE
[2023-06-11 09:29] VITALS: RESP 16
[2023-06-11] MEDS: METOCLOPRAMIDE HCL 10 MG TABLET PO SCH (09:30)
[2023-06-11] MEDS: ACETAMINOPHEN 500 MG TAB PO SCH ×2 (09:30→14:35)
[2023-06-11] MEDS: FAMOTIDINE 20 MG TAB PO SCH (09:30)
[2023-06-11] MEDS: CeleBREX 200 MG CAP PO SCH (09:30)
[2023-06-11] MEDS: Scopolamine 1 MG TDSY TD SCH (09:31)
[2023-06-11] MEDS: LR 500ML BOLUS, THEN 15ML/HR IV SCH (09:37)
[2023-06-11] MEDS: dexAMETHasone**PF** 10 MG/ML VIAL IV SCH (09:37)
[2023-06-11] MEDS: LR 60ML/HR IV SCH (09:38)
[2023-06-11] MEDS ORDERED: MIDAZOLAM HCL 1 MG/ML 2ML VIAL ONE ×2 (09:49→10:52)
[2023-06-11] MEDS ORDERED: PROPOFOL IV EMULSION 10 MG/ML 20 ML VIAL IV ONE (09:54)
[2023-06-11] MEDS ORDERED: ONDANSETRON INJ 2 MG/ML 2 ML VIAL IV PRN ×2 (10:02→13:12)
[2023-06-11] MEDS ORDERED: ATROPINE SULFATE 0.1 MG/ML 10ML SYR IV PRN (10:02)
[2023-06-11] MEDS ORDERED: ePHEDrine sulfate 50 MG/ML AMP IV PRN (10:02)
[2023-06-11] MEDS ORDERED: HYDROmorphone INJ 2 MG/ML SYR/VIAL IV PRN (10:02)
[2023-06-11] MEDS ORDERED: fentaNYL citrate PF 100 MCG/2 ML VIAL IV PRN (10:02)
--- NOTE | 2023-06-11 10:18 | History & Physical Bridge Note ---
Date of Service June 11, 2023 History & Physical Bridge Note I have examined the patient, reviewed the History & Physical and in the interval since the performance of the History & Physical I have noted the following changes of clinical significance: no changes noted
[2023-06-11] MEDS: ceFAZolin 2000MG 2,000 MG/15 ML SYR IV SCH (10:37)
[2023-06-11] MEDS ORDERED: LIDOCAINE 2% 2 ML VIAL/AMP(20MG/ML) INFIL ONE (10:42)
--- OUTSIDE RECORDS SUMMARY | 2023-06-11 10:55 | External Medical Summary | Summary of Care ---
Author Name Unknown Organization [facility] Address [address] [facility] [place] [address] Phone [phone] Care Team Providers Care Blunger Machine Operator Name Role Phone Danielle Geetha L DO Primary Care Provider [phone] Reason for Visit * Reason Comments Weight Management Wegovy check up Encounter Details Date Type Department Care Team (Late st Contact Info) Description 06/05/2023 9:40 AM EST Office Visit Nutrition & Weight Management, [facility] [address] [place] [address] Lesli Villafuerte PA-C [address] [place] [address] Class 1 obesity due to excess calories with serious comorbidity and body mass index (BMI) of 34.0 to 34.9 in adult* Allergies Active Allergy Reactions Criticality Noted Date Comments Adalimumab High 04/06/2022 Other reaction(s): Rash and itching documented as of this encounter (statuses as of 06/05/2023) Medications Medication Sig Dispensed Refills Start Date End Date Status Cimzia Starter Kit 6 X 200 MG/ML Subcutaneous Prefilled Syringe Kit 0 07/19/2022 Active traZODone HCl 50 MG Oral Tablet (Desyrel)Indicatio ns:Primary insomnia Take 1 Tablet by mouth at bedtime. 30 Tablet 5 11/23/2022 Active Venlafaxine HCl ER 37.5 MG Oral Capsule Extended Release 24 Hour (Effexor XR)Indications:Anx iety Take 1 Capsule by mouth in the morning. 90 Capsule 2 12/11/2022 Active Pravastatin Sodium 10 MG Oral Tablet (Pravachol) Take 1 Tablet by mouth every evening. 90 Tablet 2 12/11/2022 Active Losartan Potassium 50 MG Oral Tablet (Cozaar) Take 1 Tablet by mouth in the morning. 90 Tablet 2 12/11/2022 Active Metoprolol Succinate ER 25 MG Oral Tablet Extended Release 24 Hour (toPROL XL) Take 1 Tablet by mouth in the morning. 90 Tablet 1 03/12/2023 Active Estradiol 10 MCG Vaginal Tablet 0 06/04/2023 Active hydroCHLOROthiazid e 12.5 MG Oral Tablet (Hydrodiuril) 0 06/04/2023 Active Wegovy 2.4 MG/0.75ML Subcutaneous Solution Auto-injector (Semaglutide-Weigh t Management)Indicat ions:Class 1 obesity due to excess calories with serious comorbidity and body mass index (BMI) of 34.0 to 34.9 in adult Inject 2.4 mg under the skin once a week. 9 mL 2 06/05/2023 Active amLODIPine Besylate 5 MG Oral Tablet (Norvasc) Take 1 Tablet by mouth in the morning. 90 Tablet 3 07/25/2022 06/05/2023 Discontinued (Medication List Clean Up) Wegovy 2.4 MG/0.75ML Subcutaneous Solution Auto-injector (Semaglutide-Weigh t Management)Indicat ions:Class 1 obesity due to excess calories with serious comorbidity and body mass index (BMI) of 34.0 to 34.9 in adult Inject 2.4 mg under the skin once a week. 9 mL 0 03/12/2023 06/05/2023 Discontinued (Refill) documented as of this encounter (statuses as of 06/05/2023) Active Problems Problem Noted Date Diagnosed Date Elevated blood pressure read ing without diagnosis of hypertension 09/12/2022 Fatty liver 09/12/2022 Left ventricular diastolic dysfunction Depression 09/12/2022 Hyperlipidemia 09/12/2022 Encounter for long-term (current) use of medicat ions 09/12/2022 HTN, goal below 140/90 04/23/2017 Anxiety 04/23/2017 Gastroesophageal reflux disease 04/23/2017 Rheumatoid arthritis of [facility] sites without rheumatoid factor 11/02/2015 IRON DEFIC ANEMIA NOS 05/26/2004 documented as of this encounter (statuses as of 06/05/2023) Resolved Problems Problem Noted Date Diagnosed Date Resolved Date ADVANCE DIRECTIVE INFORMATION 09/19/2004 04/23/2017 Overview: No, Advance Directive brochure given to patient. Rheumatoid arthritis 016 Hypertension 04/23/2017 documented as of this encounter (statuses as of 06/05/2023) Immunizations Name Administration Dates Next Due PPD 04/03/2012 documented as of this encounter Social History Tobacco Use Types Packs/Day Years Used Date Smoking Tobacco: Never Smokeless Tobacco: Never Tobacco Cessation:Counseling Given: Not Answered Alcohol Use Standard Drinks/Week Comments Yes 0 (1 standard drink = 0.6 oz pur e alcohol) rare PHQ-2 Answer Date Recorded PHQ-2 Score 0 03/09/2018 Hunger Vital Sign Answer Date Recorded Within the past 12 months, y ou worried that your food would run out before you got the money to buy more. Never true 11/16/19 23 Within the past 12 months, t he food you bought just didn't last and you didn't have money to get more. Never true 11/15/2022 Sex and Gender Information Value Date Recorded Sex Assigned at Female 07/16/2022 8:31 AM EDT Gender Identity Female 07/16/2022 8:31 AM EDT Sexual Orientation Straight 07/16/2022 8: 31 AM EDT Job Start Date Occupation Industry Not on file Not on file Not on file documented as of this encounter Last Filed Vital Signs Vital Sign Reading Time Taken Comments Blood Pressure 130/86 06/05/2023 9:33 AM EST Pulse 88 06/05/2023 9:33 AM EST Temperature 36.5 C (97.7 F) 06/05/2023 9:33 AM ES T Respiratory Rate - - Oxygen Saturation - - Inhaled Oxygen Concentration - - Weight 69.5 kg (153 lb 4.8 oz) 06/05/2023 9:33 A M EST Height 157.5 cm (5' 2") 06/05/2023 9:33 AM EST Body Mass Index 28.04 06/05/2023 9:33 AM EST documented in this encounter Patient Instructions * Patient Instructions* Lesli Villafuerte PA-C - 06/05/2023 10:01 AM EST All Wegovy prescriptions are now automatically sent to the [facility]. If they can fill the medication, they will mail it to you. If they cannot fill due to supply or insurance, they can route it to your preferred pharmacy. [facility] also processes any prior authorizations that need completed. You can reach them at [phone] for any questions or concerns. documented in this encounter Progress Notes * Lesli Villafuerte PA-C - 06/05/2023 9:41 AM EST Comprehensive [facility] Note Nursing Notes: Paola Aponte, MED ASSIST 06/05/23 0937 Sign at exiting of workspace Pt verified identity by last name and date. Chief Complaint Patient presents with Weight Management Wegovy check up Zoe Reynoso presents in follow up to the comprehensive weight management clinic. The patient is a 57 year old female Wt Readings from Last 6 Encounters: 06/05/23 69.5 kg (153 lb 4.8 oz) 12/03/22 81.1 kg (178 lb 12.8 oz) 11/23/22 81.2 kg (179 lb) 09/18/22 84 kg (185 lb 1.6 oz) 09/12/22 84.8 kg (187 lb) 08/28/22 86.6 kg (190 lb 14.4 oz) Patient is receiving ongoing education regarding dietary and physical modifications for weight loss. - Initial clinic visit 08/28/22. Weight 190 lbs Height 60" Body mass index is 37.28 kg/m. - Today's weight: 153 lbs - Total weight loss of -37 since initial weight in clinic - Patient's last follow up with GI/Nutrition clinic was on 12/03/22. - The patient's weight has -25 lbs since the last visit 06/05/23 -on Wegovy 2.4mg -tolerating well -down 19.5% BW loss so far! -getting L TKA next week with Dr. Navarro 12/03/22 -on Wegovy 1.7mg - tolerating well -energy is good -off 1 BP med with weight loss already! Today's Visit 08/28/22 - Overall goal: be healthier, more mobile - Wt hx: has struggled more recently since menopause - Highest wt as adult: 200lbs - within the last 5 years - Lowest wt as adult: 120lb - Barriers: RA Patient Active Problem List Diagnosis Code IRON DEFIC ANEMIA NOS D50.9 Rheumatoid arthritis of multiple sites without rheumatoid factor (HCC) M06.09 HTN, goal below 140/90 I10 Anxiety F41.9 Gastroesophageal reflux disease K21.9 Elevated blood pressure reading without diagnosis of hypertension R03.0 Fatty liver K76.0 Left ventricular diastolic dysfunction I51.9 Depression F32.A Hyperlipidemia E78.5 Encounter for long-term (current) use of medications Z79.899 Review of Systems: Review of Systems Gastrointestinal: Negative for constipation, diarrhea, nausea and vomiting. All other systems reviewed and are negative. Current Medications: Current Outpatient Medications Medication Sig Dispense Refill Cimzia Starter Kit 6 X 200 MG/ML Subcutaneous Prefilled Syringe Kit traZODone HCl 50 MG Oral Tablet (Desyrel) Take 1 Tablet by mouth at bedtime. 30 Tablet 5 Venlafaxine HCl ER 37.5 MG Oral Capsule Extended Release 24 Hour (Effexor XR) Take 1 Capsule by mouth in the morning. 90 Capsule 2 Pravastatin Sodium 10 MG Oral Tablet (Pravachol) Take 1 Tablet by mouth every evening. 90 Tablet 2 Losartan Potassium 50 MG Oral Tablet (Cozaar) Take 1 Tablet by mouth in the morning. 90 Tablet 2 Metoprolol Succinate ER 25 MG Oral Tablet Extended Release 24 Hour (toPROL XL) Take 1 Tablet by mouth in the morning. 90 Tablet 1 Estradiol 10 MCG Vaginal Tablet hydroCHLOROthiazide 12.5 MG Oral Tablet (Hydrodiuril) Wegovy 2.4 MG/0.75ML Subcutaneous Solution Auto-injector (Semaglutide-Weight Management) Inject 2.4mg under the skin once a week. 9 mL 2 No current facility-administered medications for this visit. Water intake: yes Prescribed diet: 7906-0093 Calorie Controlled Current diet: Breakfast-- banana, cereal, eggs Snack-- PB crackers Lunch--meat and cheese Snack-- nuts Dinner-- salad, meat, veggie Snack-- skips Drinks-- water, tea Meals Away from Home-- 2-3x per week Food logs: No Type of exercise: ADL Weight loss Pharmacotherapy: yes Semaglutide 2.4 mg weekly BP 130/86 | Pulse 88 | Temp 36.5 C (97.7 F) (Temporal Artery) | Ht 1.575 m (5' 2") | Wt 69.5 kg (153 lb 4.8 oz) | BMI 28.04 kg/m | BSA 1.74 m PHYSICAL EXAMINATION: General: Patient awake alert and oriented. Patient is well appearing and in no acute distress. Skin: No rashes. HEENT: Head is atraumatic, normocephalic. EOMs intact Abdomen: Obese Neuro: No focal deficits Psych: Appropriate mood and affect. Assessment and Plan: Abnormal weight gain / Body mass index is 28.04 kg/m. / Class I obesity: - Would like to proceed with medical management - Barriers are consistency. - Motivators are feeling better overall, avoiding/reducing co-morbid conditions. - The patient was encouraged to to avoid all fruit juices and regular sodas, consume at least 64 ounces of water per day, keep food logs and get weighed on a weekly basis. They were encouraged to increase physical activity as prescribed. - Handouts regarding nutrition and physical activity were provided, as appropriate. 1. Keep a food log. If you bite it, write it! Apps like Rhomania or [employer] Calorie goal: 5671-9917 2. Drink 48-64 ounces of non-caloric beverages per day. No fruit juices or regular soda Try crystal light, propel, zero calorie flavored water, plain water 3. Goal of 30 minutes of exercise 5 days per week (150 minutes per week--can be divided up however you would like) Aim for aerobic activity and muscle strengthening activities 4. Increase fruit and vegetable servings to 5-6 per day. 1/2 of your plate should be fruits and vegetables 5. Eat 100-200 calories within 1-2 hours of awakening, and every 4 - 6 hours while awake. (3 meals with snacks in between) Choose 100 calorie or less snacks, protein snacks 7. Weight yourself weekly and follow trend over time (day to day weight fluctuations can be discouraging) 8. Decrease starches like bread, pasta, cereal, potatoes and corn. Aim for of your plate Try substitutions like zoodles, lentil pasta, cauliflower mashed potatoes, whole grain foods, quinoa Limit junk/processed foods Chips, pretzels, cookies, cakes, sweets White bread/rolls/wraps/bagels, white rice 9. Increase protein to feel full longer (1/4 of your plate) Zoe was seen today for weight management. Diagnoses and all orders for this visit: Class 1 obesity due to excess calories with serious comorbidity and body mass index (BMI) of 34.0 to 34.9 in adult - Wegovy 2.4 MG/0.75ML Subcutaneous Solution Auto-injector (Semaglutide-Weight Management); Inject 2.4 mg under the skin once a week. -continue Wegovy 2.4mg -increase protein, fruits and veggies -add protein shake around time of surgery -hold Wegovy 1 week before surgery Abnormal weight gain HTN, goal below 140/90 -on multiple medications -within goal today -off amlodipine per cardiology! KAM on CPAP -compliant Gastroesophageal reflux disease, unspecified whether esophagitis present -continue PPI -consider EGD Rheumatoid arthritis of multiple sites without rheumatoid factor (HCC) Dyslipidemia, goal LDL below 100 -continue Pravastatin Anxiety -continue Effexor The patient agreed to try the plan as discussed and return in 6 months. They were encouraged to call or send a patient portal message in the meantime with any questions or concerns prior to their next clinic visit. I spent a total of 20 minutes on the date of service in preparation, delivery, and documentation ofthe care provided to Zoe Reynoso excluding any time spent in the performance of separately billed services. This included but was no limited to providing counseling about the benefits of weight loss, about their nutritional status, detailed explanations about calorie count, types of nutrients to choose, and composition of the meals. Motivational interview provided in order to prepare the patient to achieve future goals. Lesli Villafuerte PA-C documented in this encounter Nursing Notes * Paola Aponte, MED ASSIST - 06/05/2023 9:37 AM EST Pt verified identity by last name and date. Chief Complaint Patient presents with Weight Management Wegovy check up documented in this encounter Plan of Treatment Upcoming Encounters Date Type Department Care Team (Late st Contact Info) Description 12/06/2023 9:20 AM EDT Office Visit Nutrition & Weight Management, [facility] [address] [phone] Lesli Villafuerte PA-C [address] [place] [address] Health Maintenance Due Date Last Done Comments Hepatitis B (1 of 3 - 3-dose series) 1965 Pneumococcal Vaccine: Pediatrics (0 to 5 Years) and At-Risk Patients (6 to 64 Years) (1 - PCV) 08/30/1969 HIV Screening 08/30/1978 Hepatitis C Screening 08/30/1981 DTaP,Tdap,and Td Vaccines (1 - Tdap) 08/30/1982 Zoster Vaccines (1 of 2) 08/30/1982 Cologuard 08/30/2008 Fecal Occult Blood Test 08/30/2008 Sigmoidoscopy 08/30/2008 Depression Screening 03/27/2018 03/27/2017 COVID-19 Vaccine (2 - Pfizer risk series) 04/12/2021 03/22/2021 Influenza Vaccine (FLU shot) (#1) 2023 Mammogram 06/21/2023 06/21/2022 GFR 05/15/2024 05/15/2023, 07/04, 07/24/2017, Additional history exists Albumin/Creatinine Ratio 07/16/2025 07/16/2022 Colonoscopy 05/06/2026 05/06/2016 Colorectal Cancer Screening 05/06/2026 Diabetes Screening 05/15/2026 05/15/2023, 0 07/16/2022, 07/24/2017, Additional history exists Lipid Panel 07/17/2027 07/16/2022, 07/05, 10/18/2005 GARDASIL-HPV IMMUNIZATION SERIES Aged Out No longer eligible based on patient's age to complete this topic MENINGOCOCCAL (MENACTRA/MENVEO) Aged Out No longer eligible based on patient's age to complete this topic documented as of this encounter Medical Devices Not on filedocumented as of this encounter Visit Diagnoses Diagnosis Class 1 obesity due to excess calories with serious comorbidity and body mass index (BMI) of 34.0 to 34.9 in adult- Primary documented in this encounter Care Teams Blunger Machine Operator Relationship Specialty Start Date End Date [facility] [address] [facility] [address] PCP - General Family Medicine 07/16/22 documented as of this encounter
--- OUTSIDE RECORDS SUMMARY | 2023-06-11 10:55 | External Medical Summary | Summary of Care ---
Author Name Unknown Organization [facility] Address [address] [facility] [place] [address] Phone [phone] Care Team Providers Care Dynamicist Name Role Phone Danielle Geetha L DO Primary Care Provider [phone] Reason for Visit * Reason Comments eRx-Medication Refill Encounter Details Date Type Department Care Team (Late st Contact Info) Description 06/09/2023 Refill Nutrition & Weight Management, [facility] [address] [place] [address] Lesli Villafuerte PA-C [address] [place] [address] Class 1 obesity due to excess calories with serious comorbidity and body mass index (BMI) of 34.0 to 34.9 in adult Allergies Active Allergy Reactions Criticality Noted Date Comments Adalimumab High 04/06/2022 Other reaction(s): Rash and itching documented as of this encounter (statuses as of 06/10/2023) Medications Medication Sig Dispensed Refills Start Date [...] (BMI) of 34.0 to 34.9 in adult INJECT 2.4 MG UNDER THE SKIN ONCE A WEEK 9 mL 0 06/10/2023 Active Wegovy 2.4 MG/0.75ML Subcutaneous Solution Auto-injector (Semaglutide-Weigh t Management)Indicat ions:Class 1 obesity due to excess calories with serious comorbidity and body mass index (BMI) of 34.0 to 34.9 in adult Inject 2.4 mg (1 pen) under the skin once a week. 9 mL 2 06/05/2023 4 Discontinued documented as of this encounter (statuses as of 06/10/2023) Active Problems Problem Noted Date Diagnosed Date Elevated blood pressure read ing without diagnosis of hypertension 09/12/2022 Fatty liver 09/12/2022 Left ventricular diastolic dysfunction 3 Depression 09/12/2022 Hyperlipidemia 09/12/2022 Encounter for long-term (current) use of medicat ions 09/12/2022 HTN, goal below 140/90 04/23/2017 Anxiety 04/23/2017 Gastroesophageal reflux disease 04/23/2017 Rheumatoid arthritis of [facility] sites without rheumatoid factor 11/02/2015 IRON DEFIC ANEMIA NOS 05/26/2004 documented as of this encounter (statuses as of 06/10/2023) Resolved Problems Problem Noted Date Diagnosed Date Resolved Date ADVANCE DIRECTIVE INFORMATION 09/19/2004 04/23/2017 Overview: No, Advance Directive brochure given to patient. Rheumatoid arthritis 016 Hypertension 04/23/2017 documented as of this encounter (statuses as of 06/10/2023) Immunizations Name Administration Dates Next Due PPD 04/03/2012 documented as of this encounter Social History Tobacco Use Types Packs/Day Years Used Date Smoking Tobacco: Never Smokeless Tobacco: Never Alcohol Use Standard Drinks/Week Comments Yes 0 [...] on file documented as of this encounter Miscellaneous Notes * Telephone Encounter - Lesli Villafuerte PA-C - 06/10/2023 2:25 PM EST Signed Prescriptions: Disp Refills Wegovy 2.4 MG/0.75ML Subcutaneous Solution*9 mL 0 Sig: INJECT 2.4 MG UNDER THE SKIN ONCE A WEEK Authorizing Provider: LESLI VILLAFUERTE * Telephone Encounter - Camille Harris RN - 06/10/2023 2:19 PM ESTPending Prescriptions: Disp Refills Wegovy 2.4 MG/0.75ML Subcutaneous Solution*9 mL 0 Sig: INJECT 2.4 MG UNDER THE SKIN ONCE A WEEK * Telephone Encounter - Camille Harris RN - 06/10/2023 2:18 PM EST Pharmacy: [id number] [facility] Pending Prescriptions: Disp Refills Wegovy 2.4 MG/0.75ML Subcutaneous Solutio*9 mL 0 Sig: INJECT 2.4 MG UNDER THE SKIN ONCE A WEEK Last Visit: 06/05/2023 (in office), Visit date not found (telemedicine) Next Visit: 12/06/2023 If no future appointments scheduled, and last appointment is greater than a year ago, please schedule patient for a follow-up appointment Last date the medication was ordered: 06/05/23 Urine Drug Screen:No results found for this or any previous visit. Patient Phone Numbers Labs: Lab Results Component Value Date/Time CREAT 0.57 (A) 05/15/2023 12:00 AM CREAT 0.7 07/24/2017 07:59 AM POTASSIUM 4.0 05/15/2023 12:00 AM POTASSIUM 3.9 07/24/2017 07:59 AM TSH 1.37 07/16/2022 09:43 AM TSH 1.12 09/19/2004 09:10 AM LDLCALC 105 07/16/2022 09:43 AM LDLCALC 129 07/24/2017 07:59 AM LDLDIRECT NOT APPLICABLE 07/24/2017 07:59 AM ALT 32 07/16/2022 09:43 AM ALT 29 07/24/2017 07:59 AM documented in this encounter Plan of Treatment Upcoming Encounters Date Type Department Care Team (Late st Contact Info) Description 12/06/2023 9:20 AM EDT Office Visit Nutrition & Weight Management, [facility] [address] [place] [address] Lesli Villafuerte PA-C [address] [place] [phone] Health Maintenance Due Date Last Done Comments [...] (BMI) of 34.0 to 34.9 in adult documented in this encounter Care Teams Dynamicist Relationship Specialty Start Date End Date Geetha Santos DO [address] [address] PCP - General Family Medicine 07/16/22 documented as of this encounter
--- OUTSIDE RECORDS SUMMARY | 2023-06-11 10:55 | External Medical Summary | Summary of Care ---
Author Name Unknown Organization [facility] Address [address] [facility] [place] [address] Phone [phone] Care Team Providers Care Transformer Assembler Name Role Phone Danielle Geetha L DO Primary Care Provider Reason for Visit * Reason Comments eRx-Medication Refill Encounter Details Date Type Department Care Team (Late st Contact Info) Description 06/09/2023 Refill Nutrition & Weight Management, [facility] [address] [place] [phone] Lesli Villafuerte PA-C [address] [place] [address] Class 1 obesity due to excess calories [...] Gastroesophageal reflux disease 04/23/2017 Rheumatoid arthritis of [facility] sites without rheumatoid factor 11/02/2015 IRON [...] encounter Miscellaneous Notes * Telephone Encounter - Camille Harris RN - 06/10/2023 3:27 PM ESTSigned Prescriptions: Disp Refills Wegovy 2.4 MG/0.75ML Subcutaneous Solution*9 mL 0 Sig: INJECT 2.4 MG UNDER THE SKIN ONCE A WEEKAuthorizing Provider: LESLI VILLAFUERTE * Telephone Encounter - Lesli Villafuerte PA-C [...] RN - 06/10/2023 2:18 PM EST Pharmacy: [id number] Pending Prescriptions: Disp Refills Wegovy 2.4 MG/0.75ML [...] EDT Office Visit Nutrition & Weight Management, [facility] [address] [address] Lesli Villafuerte PA-C [address] [place] [address] Health Maintenance Due Date Last Done Comments [...] adult documented in this encounter Care Teams Transformer Assembler Relationship Specialty Start Date End Date Geetha Santos DO [address] [place] [address] PCP - General Family Medicine 07/16/22 documented as of this encounter
--- OUTSIDE RECORDS SUMMARY | 2023-06-11 10:55 | External Medical Summary | Summary of Care ---
Author Name Unknown Organization [facility] Address [address] [place] [address] Phone [phone] Care Team Providers Care Buoy Tender Name Role Phone Geetha Santos DO Primary Care Provider [phone] Encounter Details Date Type Department Care Team (Late st Contact Info) Description 05/16/2023 Telephone [facility] [address] [place] [address] Geetha Santos DO [address] [place] [address] Allergies Active Allergy Reactions Criticality Noted Date Comments Adalimumab High 04/06/2022 Other reaction(s): Rash and itching documented as of this encounter (statuses as of 05/20/2023) Medications Medication Sig Dispensed Refills Start Date End Date Status amLODIPine Besylate 5 MG Oral Tablet (Norvasc) Take 1 Tablet by mouth in the morning. 90 Tablet 3 07/25/2022 Active Cimzia Starter Kit 6 X 200 MG/ML Subcutaneous Prefilled Syringe Kit 0 07/19/2022 Act jigar traZODone HCl 50 MG Oral Tablet (Desyrel)Indications: Primary insomnia Take 1 Tablet by mouth at bedtime. 30 Tablet 5 11/23/2022 Active Venlafaxine HCl ER 37.5 MG Oral Capsule Extended Release 24 Hour (Effexor XR)Indications:Anxiet y Take 1 Capsule by mouth in the [...] the morning. 90 Tablet 1 03/12/2023 Active Wegovy 2.4 MG/0.75ML Subcutaneous Solution Auto-injector (Semaglutide-Weight Management)Indication s:Class 1 obesity due to excess calories with serious comorbidity and body mass index (BMI) of 34.0 to 34.9 in adult Inject 2.4 mg under the skin once a week. 9 mL 0 03/12/2023 Active documented as of this encounter (statuses as of 05/20/2023) Active Problems Problem Noted Date Diagnosed Date Elevated blood pressure read ing without diagnosis of hypertension 09/12/2022 Fatty liver 09/12/2022 Left ventricular diastolic dysfunction Depression 09/12/2022 Hyperlipidemia 09/12/2022 Encounter for long-term (current) use of medicat ions 09/12/2022 HTN, goal below 140/90 04/23/2017 Anxiety 04/23/2017 Gastroesophageal reflux disease 04/23/[address] [facility] sites without rheumatoid factor 11/02/2015 IRON DEFIC ANEMIA NOS 05/26/2004 documented as of this encounter (statuses as of 05/20/2023) Resolved Problems Problem Noted Date Diagnosed Date Resolved Date ADVANCE DIRECTIVE INFORMATION 09/19/2004 04/23/2017 Overview: No, Advance Directive brochure given to patient. Rheumatoid arthritis 016 Hypertension 04/23/2017 documented as of this encounter (statuses as of 05/20/2023) Immunizations Name Administration Dates Next Due PPD [...] encounter Miscellaneous Notes * Telephone Encounter - Angela Rueda OSA - 05/16/2023 1:50 PM EST 05/16/23 Rec paperwork from [facility] from the Anesthesia Dept per pts request. Paperwork placed in the provider's mail bin. documented in this encounter Plan of Treatment Upcoming Encounters Date Type Department Care Team (Late st Contact Info) Description 06/05/2023 9:40 AM EST Office Visit Nutrition & Weight Management, [facility] [address] [phone] Lesli Villafuerte PA-C [address] [place] [address] Health Maintenance Due Date Last Done Comments [...] Not on filedocumented as of this encounter Care Teams Buoy Tender Relationship Specialty Start Date End Date Geetha Santos DO [address] [facility] [place] [address] PCP - General Family Medicine 07/16/22 documented as of this encounter
--- OUTSIDE RECORDS SUMMARY | 2023-06-11 10:56 | External Medical Summary | Summary of Care ---
Author Name Unknown Organization [facility] Address [address] [place] [address] Phone [phone] Care Team Providers Care Associate Vice President Name Role Phone Geetha Santos DO Primary Care Provider Encounter Details Date Type Department Care Team (Late st Contact Info) Description 05/16/2023 Orders Only [facility] [address] [place] [address] Geetha Santos DO [address] [place] [address] Allergies Active Allergy Reactions Criticality Noted Date Comments Adalimumab High 04/06/2022 Other reaction(s): Rash and itching documented as of this encounter (statuses as of 05/16/2023) Medications Medication Sig Dispensed Refills Start Date [...] as of this encounter (statuses as of 05/16/2023) Active Problems Problem Noted Date Diagnosed Date Elevated blood pressure read ing without diagnosis of hypertension 09/12/2022 Fatty liver 09/12/2022 Left ventricular diastolic dysfunction Depression 09/12/2022 Hyperlipidemia 09/12/2022 Encounter for long-term (current) use of medicat ions 09/12/2022 HTN, goal below 140/90 04/23/2017 Anxiety 04/23/2017 Gastroesophageal reflux disease 04/23/2017 Rheumatoid arthritis of [facility] sites without rheumatoid factor 11/02/2015 IRON DEFIC ANEMIA NOS 05/26/2004 documented as of this encounter (statuses as of 05/16/2023) Resolved Problems Problem Noted Date Diagnosed Date Resolved Date ADVANCE DIRECTIVE INFORMATION 09/19/2004 04/23/2017 Overview: No, Advance Directive brochure given to patient. Rheumatoid arthritis 016 Hypertension 04/23/2017 documented as of this encounter (statuses as of 05/16/2023) Immunizations Name Administration Dates Next Due PPD [...] on file documented as of this encounter Plan of Treatment Upcoming Encounters Date Type Department Care Team (Late st Contact Info) Description 06/05/2023 9:40 AM EST Office Visit Nutrition & Weight Management, [facility] [address] [phone] Lesli Villafuerte PA-C [address] [address] Health Maintenance Due Date Last Done Comments [...] shot) (#1) 2023 Mammogram 06/21/2023 06/21/2022 GFR 07/17/2023 05/15/2023, 07/04, 07/24/2017, Additional history exists Albumin/Creatinine Ratio 07/16/2025 07/16/2022 Diabetes Screening 07/16/2025 05/15/2023, 0 07/16/2022, 07/24/2017, Additional history exists Colonoscopy 05/06/2026 05/06/2016 Colorectal Cancer Screening 05/06/2026 Lipid Panel 07/17/2027 07/16/2022, 07/05, 10/18/2005 GARDASIL-HPV IMMUNIZATION SERIES Aged Out No longer eligible based on patient's age to complete this topic MENINGOCOCCAL (MENACTRA/MENVEO) Aged Out No longer eligible based on patient's age to complete this topic documented as of this encounter Medical Devices Not on filedocumented as of this encounter Procedures Procedure Name Priority Date/Time Associated Diagnosis Comments XR CHEST 2 VIEWS Routine 05/15/2023 CHEMISTRY-OUTSIDE Routine 05/15/2023 documented in this encounter Results * (ABNORMAL) CHEMISTRY-OUTSIDE (05/15/2023) Not all results display below - see scan for full detail OUTSIDE LAB (SEE SCANNED REPORT) Comment:SCAN INCLUDES - PREA DMISSION TESTING: CBCD, PT, INR, PTT, BMP, CRP CREATININE-OUTSID E LAB 0.57(A) 0.6 - 1.2 MG/DL OUTSIDE LAB (SEE SCANNED REPORT) EGFR-OUTSIDE LAB 101.5 ML/MIN/1.7 3M2 OUTSIDE LAB (SEE SCANNED REPORT) POTASSIUM-OUTSIDE LAB 4.0 3.5 - 5.1 MMOL/L OUTSIDE LAB (SEE SCANNED REPORT) GLUCOSE-OUTSIDE LAB 84 70 - 99 MG/DL OUTSIDE LAB (SEE SCANNED REPORT) HOURS FASTING OUTSID E LAB (SEE SCANNED REPORT) TRIGLYCERIDES-OUT SIDE LAB OUTSIDE LAB (SEE SCANNED REPORT) CHOLESTEROL-OUTSI DE LAB OUTSIDE LAB (SEE SCANNED REPORT) HDL-OUTSIDE LAB OUTS BAN LAB (SEE SCANNED REPORT) CHOL/HDL RATIO-OUTSIDE LAB OUTSIDE LA B (SEE SCANNED REPORT) LDL (CALCULATED)-OUTS BAN LAB OUTSIDE LAB (SEE SCANNED REPORT) LDL (DIRECT MEASURE)-OUTSIDE LAB OUTSIDE LAB (SEE SCANNED REPORT) HEMOGLOBIN, [id number] LAB OUTSIDE LAB (SEE SCANNED REPORT) PHOSPHORUS-OUTSID E LAB OUTSIDE LAB (SEE SCANNED REPORT) PTH-OUTSIDE LAB OUTS BAN LAB (SEE SCANNED REPORT) MICROALBUMIN RATIO-OUTSIDE LAB OUTSIDE LA B (SEE SCANNED REPORT) PROTEIN, UA-OUTSIDE LAB OUTSIDE LAB (SEE SCANNED REPORT) HEMOGLOBIN-OUTSID E LAB 13.7 12.0 - 16.0 G/DL OUTSIDE LAB (SEE SCANNED REPORT) 05/15/2023 Leandro Navarro MD LABORATORY OUTSIDE LAB (SEE SCANNED REPORT) * XR CHEST 2 VIEWS (05/15/2023) Anatomical Region Laterality Modality Chest Other 05/15/2023 Leandro Navarro MD RADIOLOGY (RAD G ENERAL) documented in this encounter Care Teams Associate Vice President Relationship Specialty Start Date End Date Geetha Snatos DO [address] [place] [address] PCP - General Family Medicine 07/16/22 documented as of this encounter
--- OUTSIDE RECORDS SUMMARY | 2023-06-11 10:56 | External Medical Summary | Summary of Care ---
Author Name Unknown Organization [facility] Address [address] [place] [address] Phone [phone] Care Team Providers Care Associate Dean Of Women Name Role Phone Geetha Santos Primary Care Provider [phone] Encounter Details Date Type Department Care Team (Late st Contact Info) Description 05/15/2023 Result Scan Unspecified Department <No scans attached> Allergies Active Allergy Reactions Criticality Noted Date [...] Gastroesophageal reflux disease 04/23/2017 Rheumatoid arthritis of [facility] sites without rheumatoid factor 11/02/2015 IRON [...] EST Office Visit Nutrition & Weight Management, [facility] [address] [place] [address] Lesli Villafuetre PA-C [address] [address] Health Maintenance Due Date Last Done Comments [...] Cancer Screening 05/06/2026 Lipid Panel 07/17/2027 07/16/2022, 03/05/2017, 10/18/2005 GARDASIL-HPV IMMUNIZATION SERIES Aged Out No longer eligible based on patient's age to complete this topic MENINGOCOCCAL (MENACTRA/MENVEO) Aged Out No longer eligible based on patient's age to complete this topic documented as of this encounter Medical Devices Not on filedocumented as of this encounter Procedures Procedure Name Priority Date/Time Associated Diagnosis Comments EKG SCANNED RESULT 05/15/2023 documented in this encounter Results * EKG SCANNED RESULT (05/15/2023) 05/15/2023 No Physician Data Unknown EKG documented in this encounter Care Teams Associate Dean Of Women Relationship Specialty Start Date End Date Geetha Santos DO [address] [place] [address] PCP - General Family Medicine 07/16/22 documented as of this encounter
[2023-06-11] MEDS ORDERED: PHENYLEPHRINE HCL 10 MG/ML VIAL ONE (11:31)
[2023-06-11] MEDS: TRANEXAMIC ACID 1,000 MG **IV Intra-op IV SCH (11:36)
[2023-06-11] MEDS ORDERED: ONDANSETRON INJ 2 MG/ML 2 ML VIAL ONE (11:37)
[2023-06-11] MEDS: VANCOMYCIN HCL 1000MG/20ML VIAL ONE (11:52)
[2023-06-11] MEDS: ORTHO JOINT ANESTHETIC ONE (11:52)
[2023-06-11] MEDS: ROPIV 0.5% 246mg, Ketorolac 30mg, EPINEPHrine 0.5mg in NSS INFIL SCH (11:52)
--- NOTE | 2023-06-11 12:31 | Operative Report ---
PG Post Operative Report Pre & Post Diagnosis Operation Date: 06/11/23 10:40 Pre-Op Diagnosis: Left knee degenerative joint disease. Post-Op Diagnosis: Left knee degenerative joint disease. I identified the patient and participated in the time-out.: Yes Procedure Operation Date: 06/11/23 10:40 Actual Procedures p Left Total Knee Arthroplasty, Cemented(Left) - Leandro Navarro MD Surgeon Leandro Navarro MD Bale Piler Osmani Cote PA-C Estimated Blood Loss 50 Findings Consistent with Post-Op Diagnosis Operative findings revealed left knee tricompartment DJD. It also showed extensive synovitis throughout the knee joint. She had an inflammatory large knee joint effusion. Specimens Left knee sent for pathology. Anesthesia Type Spinal MAC Complications none Disposition Accompanied Patient To Recovery: No Indications Patient is a 57-year-old female with longstanding rheumatoid disease who has developed progressive bilateral knee pain discomfort describes gotten worse over time patient been to extensive conservative treatment. Pain has become really limiting him. Left knee was bothering more than the right. She elected proceed with left total knee arthroplasty. Description of Procedure Operative implants consist of: 1 Biomet Vanguard size 60 left posterior stabilized femoral component. 2. Biomet size 63 tibial tray. 3. 10 mm post stabilized polyethylene insert. 4. 28 x 8 all poly patella. The patient was taken the operating room, identified, placed on the operating table in the supine position. All contact areas were appropriately padded. IV antibiotics 5 by anesthesia team. A spinal anesthetic and abductor canal block had been provided in the holding area. A Lyons catheter was placed in sterile fashion. A left thigh drape was then placed in the left lower extremities then prepped and draped in usual sterile fashion. The left leg was elevated and exsanguinated with use of an Esmarch and a turn was placed at 300 mmHg. An anterior approach the left knee was then performed to longitudinal incision centered over the patella. Sharp dissection was through subcutaneous tissue down the extensor mechanism. A medial parapatellar arthrotomy incision was made. Some subperiosteal dissection was carried out medially. The fat pad was resected from Neath patella tendon. A complete synovectomy was then performed of the knee joint as she had pretty extensive burnt out synovium in the suprapatellar pouch and the medial and lateral gutters. The knee was then flexed. Lateral patellofemoral ligament was released. The osteophytes taken on distal femur. The ACL and PCL were then released from the distal femur and the tibia subluxated anteriorly. The external tibial alignment jig was then placed on the anterior face of the tibia and adjusted 14 mm medially. Proximal tibial cut was made to move out a millimeter bone from the medial side. Tibia sized to a size 63. Attention drawn to the femur. The distal femur was then with a sharp drill. Intramedullary canal was suction. A left 5 degree valgus cutting guide was placed. The distal femoral cutting block was pinned in place. Distal femoral cut was made to take an additional 3 mm of bone off distal femur. The femur was then sized to a size 60. A size exactly to a size 60. The AP cutting block was pinned parallel to the epicondylar axis which was 5 degrees of external rotation. Anterior cut, anterior chamfer, posterior cut, posterior chamfer cuts were made. The box cutting guide was placed in just slight lateral box cut was made. The knee was flexed. The remnants of the medial and lateral menisci were excised. The osteophytes taken off the posterior aspect the femur. A trial femoral component was placed but the tibial tray was pinned Miriam external rotation and the drill and stem punch used to create defect in proximal tibia for the tibial tray. Knee was then trialed and 10 mm insert fit most appropriately. Attention drawn the patella. The patella was cleaned of all soft tissues. Patella thickness measured 18 mm in thickness was cut down to 12. Was sized to a size 28 patella. The lug holes were drilled for the 28 patella. The lateral osteophyte was removed. Patella button was placed. Knee was taken through range of motion and the patella tracked nicely with no thumbs test. Attention drawn to placing the permanent components. Nupathe all trial components were removed. Bone plug was placed in the distal femur limit blood loss. A double batch Palacos G cement was mixed. I did add an additional gram of vancomycin due to her history of autoimmune disease. A Biomet Vanguard size 60 left posterior by femoral component, size 63 tibial tray, a 10 mm post stabilized polyethylene insert, and a 28 x 8 all poly patella then cemented in place. Knee was brought out into full extension till cement hardened. Final cement check was then performed. Pericapsular tissues were injected with total 100 cc of combination 50 cc ropivacaine with epinephrine, 30 mg Toradol, 50 cc of normal saline. Patient did receive 1 g tranexamic acid. The stent was then let down for final tourniquet time 55 minutes. Hemostasis assured use electrocautery. Extensor Metros then closed with combination 1 PDS suture #1 Vicryl suture in a [id number] fashion. Extensor mechanism checked found to be intact. Subcutaneous tissues then closed with 2 Dexon suture in buried interrupted fashion skin was closed skin libia. Leg was then cleaned and dried and a sterile dressing was Xeroform, 4 fours, sterile cast padding, Maycol bandage were applied. Patient then transferred to the recovery room in stable condition. Patient tolerated procedure well and there were no complications. Osmani Cote, my physician business office assistant, was present for the entire procedure. His assistance was essential and required for appropriate patient positioning, prepping and draping, surgical exposure, performing the technical details of the operation, placement the implants, closure of the wound, and placement of the sterile bandage. I attest to the content of the Intraoperative Record and any orders documented therein. Any exceptions are noted below.
--- NOTE | 2023-06-11 13:10 | Anesthesiology Progress Note ---
Date of Service June 11, 2023 Anesthesia Post Procedure Vital Signs Vital Signs: Temp Pulse Pulse Resp BP Pulse Ox O2 Del Method 06/11/23 12:40 36.5 C 87 16 115/69 95 Room Air 06/11/23 12:30 88 16 105/71 95 Room Air 06/11/23 12:21 36.0 C L 94 H 16 95 Room Air 06/11/23 09:20 Room Air 06/11/23 09:20 36.8 C 93 H 16 141/95 H 95 Room Air Pain Intensity Left Knee: Pain Intensity: 7 Transfer of Care Handoff Completed per policy Notes Mental Status: alert / awake / arousable and participated in evaluation Patient Amnestic to Procedure: Yes Nausea / Vomiting: adequately controlled Pain: adequately controlled Airway Patency, RR, SpO2: stable & adequate BP & HR: stable & adequate Hydration State: stable & adequate Neuraxial Anesthesia: was administered and sensory block is resolving Anesthetic Complications: no major complications apparent and Pt Satisfied with anesthetic care
[2023-06-11] MEDS ORDERED: HYDROmorphone INJ 0.5 MG/0.5 ML SYR IV PRN (13:12)
[2023-06-11] MEDS ORDERED: MAGNESIUM HYDROXIDE SUSP 30 ML UDC PO PRN (13:12)
[2023-06-11] MEDS ORDERED: traZODone HCL 50 MG TAB PO PRN (13:12)
[2023-06-11] MEDS ORDERED: ALUMINUM/MAGNESIUM SUSP 30 ML UDC PO PRN (13:12)
[2023-06-11] MEDS ORDERED: METOCLOPRAMIDE HCL INJ 5 MG/ML 2 ML VIAL IV PRN (13:12)
[2023-06-11] MEDS ORDERED: DOCUSATE SODIUM 100 MG CAP PO PRN (13:12)
[2023-06-11] MEDS ORDERED: diphenhydrAMINE Capsule 25 MG CAP PO PRN (13:12)
[2023-06-11] MEDS ORDERED: NALOXONE HCL 0.4 MG/1 ML VIAL/CARP IV PRN (13:12)
[2023-06-11] MEDS ORDERED: bisacodyL 10 MG SUPP PR PRN (13:12)
--- NOTE | 2023-06-11 13:20 | XRay Report ---
XR knee LT 1 or 2V routine HISTORY: 57 years-old Female Surgical Post Op left knee arthroplasty COMPARISON: Knee radiographs 02/01/2023 TECHNIQUE: 2 views of the left knee FINDINGS: Total joint arthroplasty with patellar resurfacing. Anterior midline skin libia with expected posto perative soft tissue swelling and deep tissue air. No acute fracture, dislocation or unexpected opaqu e foreign body. IMPRESSION: Total joint arthroplasty with expected postoperative changes. ACT 112: Negative or not required by law. The above report was generated using voice recognition software. It may contain grammatical, syntax o r spelling errors. Electronically signed by: Reed Rios M.D. 06/11/2023 1:19 PM
[2023-06-11] MEDS: SODIUM CHLORIDE 0.9% 1,000 ML IV SCH (13:36)
[2023-06-11] MEDS ORDERED: CETIRIZINE HCL 10 MG TABLET PO PRN (13:39)
[2023-06-11] MEDS: KETOROLAC 30 MG/ML VIAL IV SCH (14:36)
[2023-06-11] MEDS: Scopolamine CHECK PATCH PLACEMENT SCH (14:42)
[2023-06-11] MEDS: ceFAZolin 1000MG 1,000 MG/7.5 ML SYR IV SCH (17:30)
[2023-06-11] MEDS: ASCORBIC ACID 500 MG TAB PO SCH (17:30)
[2023-06-11] MEDS: TRANEXAMIC ACID / 0.7% NACL 1,000 MG/100 ML BAG IV SCH (17:30)
[2023-06-11] MEDS ORDERED: SENNA 8.6 MG TAB PO SCH (21:00)
[2023-06-11] MEDS: ASPIRIN 81 MG ECTAB PO SCH (21:37)
[2023-06-11] MEDS: DOCUSATE SODIUM 100 MG CAP PO SCH (21:37)
[2023-06-11] MEDS: METOPROLOL SUCC 25MG EXT REL TAB PO SCH (21:38)
[2023-06-11] MEDS: SENNA 8.6 MG TAB PO SCH (21:38)
[2023-06-11] MEDS: PRAVASTATIN SOD 10 MG TAB PO SCH (21:39)
[2023-06-11] MEDS: oxyCODONE HCL IR 5 MG TAB (IMMEDIATE RELEASE) PO PRN (23:50)
[2023-06-12 07:06] VITALS: TEMP 98.2
[2023-06-12 07:07] LABS: Hematocrit (blood only) 33.4 % (37.0-47.0); Hemoglobin 11.1 g/dl (12.0-16.0); Mean Corpuscular Hemoglobin 29.5 pg (25.0-34.0); Mean Corpuscular Hgb Conc 33.2 g/dL (32.0-36.0); Mean Corpuscular Volume 88.8 fL (80.0-100.0); Mean Platelet Volume 9.2 fL (9.4-12.4); Platelet Count 221 K/uL (130-400); RDW Coefficient of Variation 11.9 % (11.5-14.5); Red Blood Count 3.76 M/uL (4.20-5.40); White Blood Count 11.59 K/ul (4.8-10.8)
[2023-06-12 07:20] LABS: BUN Creatinine Ratio 29.6 (10-20); Calcium 8.8 mg/dl (8.6-10.3); Est GFR (African American) 119.7 ml/min; Est GFR (Non-African American) 103.3 ml/min; Potassium 3.3 mmol/L (3.5-5.1)
[2023-06-12] MEDS: dexAMETHasone 10 MG in SYRINGE 0 ML IV SCH (08:26)
[2023-06-12] MEDS: MULTIVITAMIN TAB PO SCH (08:28)
[2023-06-12] MEDS: LOSARTAN POTASSIUM 50 MG TAB PO SCH (08:28)
[2023-06-12] MEDS: VENLAFAXINE HCL XR 37.5 MG CAPXR PO SCH (08:28)
[2023-06-12] MEDS: POTASSIUM CHLORIDE CRTAB 20 MEQ TABCR PO ONE (08:36)
[2023-06-12] MEDS ORDERED: NON-FORMULARY MEDICATION (Multivitamin Tablet) PO SCH (09:00)
[2023-06-12 10:43] VITALS: BP 125/77; O2SAT 96
--- NOTE | 2023-06-12 12:48 | Surgery Progress Note ---
Date of Service June 12, 2023 Assessment & Plan (1) Status post left knee replacement: Plan: 57-year-old female with underlying rheumatoid disease postop day 1 from a left knee replacement. She is doing pretty well. She is having some pain but nothing out of the ordinary. Pain is controlled. Therapy went well. She is hoping to go home. She is neurologically intact. Plan: 1. DVT prophylaxis including thigh-high teds, SCDs, aspirin twice daily. 2. PT/OT. Weight-bear as tolerated. Left total knee protocol. 3. Pain control doing okay with current pain regimen. 4. Hypokalemia. We supplemented her potassium. She will follow-up with her local doctor for additional needs. 5. Disposition plan to discharge to home with home health today Admission and Anticipated Discharge Date Admission Date: June 11, 2023 Subjective 57-year-old female with underlying rheumatoid disease postop day 1 from left knee replacement. She is doing okay. Significant pain but the pain medicine seem to be doing okay. Therapy went okay. No chest pain or shortness of breath. She is hoping to go home today. Physical Exam Physical Exam: Physical examination is a pleasant middle-age female. She is set up in bed and looks pretty comfortable. Examination of the left leg reveals the dressing be clean dry and intact. No drainage. She can dorsiflex and plantarflex her foot appropriately.She is neurologically intact. Respiratory: normal respiratory effort, lungs clear to auscultation Cardiovascular: RRR, no murmur, no edema Gastrointestinal (Abdomen): normal bowel sounds, soft, nontender, no hepatosplenomegaly Results & Data Vital Signs (Past 12 Hours) Vital Signs Temp Pulse Resp BP Pulse Ox O2 Del Method 06/12/23 10:41 36.8 C 82 16 125/77 96 Room Air 06/12/23 07:05 36.8 C 74 16 116/74 95 Room Air 06/12/23 03:31 36.9 C 68 16 118/72 95 Room Air Diagnostic Findings Hemoglobin is 11.1. Hematocrit 33.4. Potassium slightly low at 3.3. PG Care Time/CCT Total # of Minutes Spent Total Time Spent with Patient: Total time spent is greater than 50% in coordination of care (as documented) at patient's floor/unit and/or counseling patient: Coding Level of Care Code None Diagnoses Status post left knee replacement Z96.652
[2023-06-12 13:02] VITALS: PULSE 87
== END 2023-06-12 13:29 | disposition home or self-care (01) ==
LOC: 3E 09:00 → ASU 09:00

== ENCOUNTER 2024-03-10 10:20 | Observation (INO) ==
--- NOTE | 2024-02-27 11:34 | Anesthesiology Consultation ---
Date of Service February 27, 2024 Assessment & Plan (1) Encounter for pre-operative examination: Plan - semaglutide instructions: Patient informed by PAT RN to stop 7 days prior to surgery. - Outpatient joint assessment: Patient is currently scheduled for inpatient pathway. If re-evaluated and patient/surgeon requests outpatient pathway, patient is not recommended candidate for outpatient joint program from anesthesia standpoint. - Per ammunition supervisor on 02/27/24: No known infectious disease contacts, current infectious disease symptoms in past 10 days or COVID positive test result in the past 30 days. Chart Review Chart Review: Acceptable Risk for Surgery and Patient NOT seen in Pre Admission Testing History Surgery Operation Date: 03/10/24 07:00 Proposed Procedures p Right Total Knee Arthroplasty - Leandro Navarro MD Height/Weight Height: 5 ft 1 in Weight: 71.668 kg Allergies Allergy/AdvReac Type Severity Reaction Status Date / Time adalimumab [From Humira(CF)] Allergy Intermediate Rash and Verified 02/27/24 10:21 itching Medications Home Medications Medication Instructions Recorded Confirmed Last Taken multivitamin 1 tab PO QAM 01/15/18 02/27/24 06/10/23 08:00 metoprolol succinate 25 mg capsule 25 mg PO HS 07/29/18 02/27/24 06/10/23 21:00 sprinkle, ext. release 24 hr losartan 100 mg tablet 50 mg PO QAM 10/03/22 02/27/24 06/10/23 08:00 venlafaxine 37.5 mg 37.5 mg PO QAM 10/03/22 02/27/24 06/10/23 08:00 capsule,extended release 24 hr (Effexor XR) cetirizine 5 mg tablet 5 mg PO DAILY PRN Allergy Symptoms 12/03/22 02/27/24 Unknown pen needle, diabetic 32 gauge x #50 ea 12/03/22 12/10/23 Unknown 1/4" (BD Ultra-Fine Micro Pen Needle) trazodone 50 mg tablet 50 mg PO HS PRN Sleep 12/03/22 02/27/24 Unknown docusate sodium 100 mg capsule 100 mg PO DAILY PRN Constipation 05/13/23 02/27/24 06/10/23 08:00 (Stool Softener) pravastatin 10 mg tablet 10 mg PO HS 05/13/23 02/27/24 06/10/23 21:00 semaglutide (weight loss) 2.4 2.4 mg subcut Q7D weight loss 05/13/23 02/27/24 06/02/23 08:00 mg/0.75 mL subcutaneous pen injector (Wegovy) acetaminophen 500 mg tablet 1,000 mg (2 x 500 mg) PO TID pain 06/09/23 02/27/24 06/10/23 08:00 (Tylenol Extra Strength) 30 days #180 tabs ketorolac 10 mg tablet 10 mg PO Q6 pain 5 days #20 tabs 06/09/23 02/27/24 Unknown sennosides 8.6 mg tablet (Senokot) 8.6 mg PO BID prevent constipation 06/09/23 02/27/24 Unknown 14 days #28 tabs estradiol 10 mcg vaginal tablet 10 mcg vaginal 2XWK #24 tabs 02/03/24 02/27/24 Unknown (Yuvafem) upadacitinib 15 mg tablet,extended 15 mg PO QAM 02/27/24 02/27/24 Unknown release 24 hr (Rinvoq) Past Medical History Medical History Anxiety Awareness under anesthesia states prior to procedure in 06/2023 at [place], she remembers being catheterized, people in OR talking, seeing them above her having conversation, being moved onto OR bed. Fatty liver GERD (gastroesophageal reflux disease) controlled-no longer on meds History of anemia Hx of chest pain r/t anxiety and costochondritis Hyperlipidemia Hypertension controlled, stable per pt Migraine hx Obesity weight loss Rheumatoid arthritis Prednisone 10mg daily PRN "rheumatoid flare" Sleep apnea CPAP-noncompliant Tachycardia chronic, baseline in low 100s on beta [place] Past Family History Family History Father Myocardial infarction at age 80 at age 80 Hypertension Prostate cancer Mother at age 62 in MVA Diabetes Heart disease Hypertension Past Surgical History Surgical History History of bladder surgery mid-urethral sling insertion History of section X2 History of hysterectomy History of total knee arthroplasty (06/2023) left Hx of arthroscopy of right knee Hx of colonoscopy Nausea and vomiting after administration of anesthetic agent denies needing scop patch Status post excision of lipoma Social History Smoking Status: Never smoker Do You Dip or Chew Tobacco: No Hx Alcohol Use: Yes Alcohol type: beer alcohol intake frequency: a few times a week Hx Substance Use: No substance use type: does not use Lab Results Anesthesia Preop Results Results Anesthesia Widget: WBC 5.56 K/ul (4.8-10.8) 02/13/24 Hgb 13.3 g/dl (12.0-16.0) 02/13/24 Hct 39.1 % (37.0-47.0) 02/13/24 Plt 245 K/uL (130-400) 02/13/24 Na 138 mmol/L (136-145) 02/13/24 K 4.1 mmol/L (3.5-5.1) 02/13/24 Cl 103 mmol/L (98-107) 02/13/24 CO2 27 mmol/L (21-32) 02/13/24 BUN 18 mg/dl (6-23) 02/13/24 Creat 0.58 mg/dl (0.6-1.2) L 02/13/24 Glucose Level 85 mg/dl (70-99(Fasting)) 02/13/24 PT 10.7 Seconds (9.0-12.0) 02/13/24 PTT 27 Seconds (21-31) 02/13/24 INR 1.0 (0.9-1.1) 02/13/24 Blood Type O Negative 02/13/24 Antibody Screen NEGATIVE 02/13/24 Testing Electrocardiogram Date: 05/15/23 *Poor data quality NSR, rate 74 bpm Low voltage QRS Old anteroseptal infarct, cited on or before 01/15/18 Chest X-Ray Date: 05/15/23 No acute process.
--- NOTE | 2024-03-05 07:37 | History & Physical Report ---
Date of Service March 05, 2024 Assessment & Plan (1) Arthritis of right knee: 58-year-old female with about 9 months out from a left knee replacement with advanced right knee DJD. She has failed conservative measures. She is ready to have her right knee replaced. Plan: We are going to take her to the operating room and do a right knee replacement. The risks Mente this procedure will once again explained. The patient understands and desires to proceed. Informed consent was obtained. As far as discharge plan she is planned to be discharged to home using the [facility]. She had problems with the oxycodone last time and will use tramadol and Toradol. Will use aspirin for DVT prophylaxis. (2) Status post left knee replacement: History of Present Illness Chief Complaint: . Persistent right knee pain and discomfort. Primary Care Provider: Geteha Santos DO . The patient is a 58-year-old female who now presents for surgical treatment of her right knee. She is now about 9 months out from a left knee replacement is done pretty well. She continues to be limited by right knee pain discomfort. Is global pain. The more she is up and on it the more it hurts. It swells more as the day goes on. She is ready to have her knee fixed. Pretty happy with the left knee. Allergies Allergy/AdvReac Type Severity Reaction Status Date / Time adalimumab [From Humira(CF)] Allergy Intermediate Rash and Verified 02/27/24 10:21 itching Home Medications Medication Instructions Recorded Confirmed Type multivitamin 1 tab PO QAM 01/15/18 02/27/24 History metoprolol succinate 25 mg capsule 25 mg PO HS 07/29/18 02/27/24 History sprinkle, ext. release 24 hr losartan 100 mg tablet 50 mg PO QAM 10/03/22 02/27/24 History venlafaxine 37.5 mg 37.5 mg PO QAM 10/03/22 02/27/24 History capsule,extended release 24 hr (Effexor XR) cetirizine 5 mg tablet 5 mg PO DAILY PRN Allergy Symptoms 12/03/22 02/27/24 History pen needle, diabetic 32 gauge x #50 ea 12/03/22 12/10/23 History 1/4" (BD Ultra-Fine Micro Pen Needle) trazodone 50 mg tablet 50 mg PO HS PRN Sleep 12/03/22 02/27/24 History docusate sodium 100 mg capsule 100 mg PO DAILY PRN Constipation 05/13/23 02/27/24 History (Stool Softener) pravastatin 10 mg tablet 10 mg PO HS 05/13/23 02/27/24 History semaglutide (weight loss) 2.4 2.4 mg subcut Q7D weight loss 05/13/23 02/27/24 History mg/0.75 mL subcutaneous pen injector (Wegovy) acetaminophen 500 mg tablet 1,000 mg (2 x 500 mg) PO TID pain 06/09/23 02/27/24 Rx (Tylenol Extra Strength) 30 days #180 tabs ketorolac 10 mg tablet 10 mg PO Q6 pain 5 days #20 tabs 06/09/23 02/27/24 Rx sennosides 8.6 mg tablet (Senokot) 8.6 mg PO BID prevent constipation 06/09/23 02/27/24 Rx 14 days #28 tabs estradiol 10 mcg vaginal tablet 10 mcg vaginal 2XWK #24 tabs 02/03/24 02/27/24 Rx (Yuvafem) upadacitinib 15 mg tablet,extended 15 mg PO QAM 02/27/24 02/27/24 History release 24 hr (Rinvoq) Past Med/Surg History Problem List Arthritis of right knee Status post left knee replacement Left knee pain Effusion, left knee 02/01/23 Need for vaccination Diarrhea 01/03/22 Medication monitoring encounter Abnormal finding on imaging (Acute) Adverse effect of correct medicinal substance properly administered (Acute) Amenorrhea (Acute) Anemia (Acute) Ankle joint pain (Acute) Arthralgia of multiple sites (Acute) Arthritis (Acute) Breast pain (Acute) Cervicogenic headache (Acute) Constipation (Acute) Depression (Acute) Dysuria (Acute) 09/02/19 Elevated blood pressure reading without diagnosis of hypertension (Acute) Encounter for routine pelvic examination (Acute) Fatigue (Acute) Fatty liver (Acute) Female stress incontinence (Acute) Headache (Acute) Incontinence (Acute) Insomnia (Acute) Intractable headache (Acute) Iron deficiency anemia (Acute) Joint pain, hip (Acute) Joint pain, knee (Acute) Lipoma (Acute) Lower back pain (Acute) Mammogram abnormal (Acute) Menopausal and perimenopausal disorder (Acute) Hx of menorrhagia (Acute) Microscopic hematuria (Acute) Neck pain (Acute) Never a smoker (Acute) New onset of headaches after age 50 (Acute) Nonspecific immunological findings (Acute) Oligomenorrhea (Acute) Ovarian cyst (Acute) Pain in foot (Acute) Postmenopausal atrophic vaginitis (Acute) Tension type headache (Acute) UTI (urinary tract infection) (Acute) 09/02/19 Urethral caruncle (Acute) Urinary symptom or sign (Acute) Vaginal candidiasis (Acute) 09/02/19 Vaginal dryness, menopausal (Acute) Weight gain (Acute) Rheumatoid arthritis (Acute 06/01/12) Menorrhagia (Acute 01/29/14) Hypokalemia (Acute) 03/23/17 Hypertensive urgency (Acute) 12/08/16 Chest wall pain (Acute) 06/20/13 Chest pain (Acute) 03/23/17 Anxiety (Acute) Medical History Awareness under anesthesia states prior to procedure in 06/2023 at [place], she remembers being catheterized, people in OR talking, seeing them above her having conversation, being moved onto OR bed. Obesity weight loss Hx of chest pain r/t anxiety and costochondritis Fatty liver History of anemia Anxiety Sleep apnea CPAP-noncompliant Rheumatoid arthritis Prednisone 10mg daily PRN "rheumatoid flare" GERD (gastroesophageal reflux disease) controlled-no longer on meds Migraine hx Tachycardia chronic, baseline in low 100s on beta [place] Hyperlipidemia Hypertension controlled, stable per pt Surgical History History of total knee arthroplasty (06/2023) left Nausea and vomiting after administration of anesthetic agent denies needing scop patch Hx of colonoscopy Hx of arthroscopy of right knee History of bladder surgery mid-urethral sling insertion Status post excision of lipoma History of hysterectomy History of section X2 Family History Father Myocardial infarction at age 80 at age 80 Hypertension Prostate cancer Mother at age 62 in MVA Diabetes Heart disease Hypertension Social History Smoking Status: Never smoker Second Hand Exposure: Yes (hx as child); Do You Dip or Chew Tobacco: No; Hx Alcohol Use: Yes Alcohol type: beer Hx Substance Use: No Preferred Language: Yemeni Communication Ability: Effective Visual Impairment: No Limitations Residential Sales Manager Required: No Beliefs That Will Affect Care: None Current Living Situation: Significant Other Feels Safe at Home: Yes Assistive Devices: Glasses Review of Systems All systems reviewed & are unremarkable except as noted in HPI & below. Physical Exam . Physical examination reveals a pleasant healthy middle-aged female. Examination of the knees reveals the patient ambulates independently. Examination of the left knee reveals a well-healed incision. She got anatomic alignment to the knee. Range of motion 0-1 20. Good straight leg raise. No instability. Examination of the right knee reveals varus alignment to the knee. She is tender over the medial joint line. She got bony hypertrophy medially. Small knee effusion. Range of motion about 5-1 20. No instability. No pain with hip motion. Constitutional WD/WN, vitals as above Respiratory normal respiratory effort, lungs clear to auscultation Cardiovascular RRR, no murmur, no edema Gastrointestinal (Abdomen) normal bowel sounds, soft, nontender, no hepatosplenomegaly Results & Data Results & Data Laboratory Results . Diagnostic Findings . X-rays of the right knee reviewed. Shows advanced right knee DJD. She is got complete loss of medial joint space. She has subchondral sclerosis. Osteophytes primarily medially. A little bit of tibiofemoral subluxation. The left knee replaced looks in a good position without problems. PG Care Time/CCT Total # of Minutes Spent Total Time Spent with Patient: Total time spent is greater than 50% in coordination of care (as documented) at patient's floor/unit and/or counseling patient: Coding Level of Care Code None Diagnoses Arthritis of right knee M17.11 Status post left knee replacement Z96.652
[~2024-03-10 10:20] MED LIST changes: +BUPIVACAINE 0.5 % 5 MG/1 ML PF 10ML VIAL ONE
[2024-03-10] MEDS: CeleBREX 200 MG CAP PO SCH (11:01)
[2024-03-10] MEDS: FAMOTIDINE 20 MG TAB PO SCH (11:01)
[2024-03-10] MEDS: ACETAMINOPHEN 500 MG TAB PO SCH ×2 (11:01→20:09)
[2024-03-10] MEDS: dexAMETHasone**PF** 10 MG/ML VIAL IV SCH (11:02)
[2024-03-10] MEDS: Scopolamine 1 MG TDSY TD SCH (11:02)
--- NOTE | 2024-03-10 11:02 | History & Physical Bridge Note ---
Date of Service March 10, 2024 History & Physical Bridge Note I have examined the patient, reviewed the History & Physical and in the interval since the performance of the History & Physical I have noted the following changes of clinical significance: no changes noted
[2024-03-10] MEDS: METOCLOPRAMIDE HCL 10 MG TABLET PO SCH (11:04)
[2024-03-10] MEDS: LR 500ML BOLUS, THEN 15ML/HR IV SCH (11:05)
[2024-03-10] MEDS: LR 60ML/HR IV SCH (11:05)
[2024-03-10] MEDS ORDERED: MIDAZOLAM HCL 1 MG/ML 2ML VIAL ONE (12:14)
[2024-03-10] MEDS ORDERED: fentaNYL citrate PF 100 MCG/2 ML VIAL ONE (12:14)
[2024-03-10] MEDS ORDERED: PROPOFOL IV EMULSION 10 MG/ML 20 ML VIAL IV ONE ×3 (12:17→14:29)
[2024-03-10] MEDS ORDERED: fentaNYL citrate PF 100 MCG/2 ML VIAL IV PRN (12:50)
[2024-03-10] MEDS ORDERED: ATROPINE SULFATE 0.1 MG/ML 10ML SYR IV PRN (12:50)
[2024-03-10] MEDS ORDERED: ONDANSETRON INJ 2 MG/ML 2 ML VIAL IV PRN ×2 (12:50→16:09)
[2024-03-10] MEDS ORDERED: ePHEDrine sulfate 50 MG/ML AMP IV PRN (12:50)
[2024-03-10] MEDS: ceFAZolin 2000MG 2,000 MG/15 ML SYR IV SCH (13:19)
[2024-03-10] MEDS ORDERED: KETAMINE HCL 10MG/ML SYR ONE (13:47)
[2024-03-10] MEDS ORDERED: PHENYLEPHRINE 100MCG/ML 5ML SYR ONE (13:50)
[2024-03-10] MEDS: ROPIV 0.5% 246mg, Ketorolac 30mg, EPINEPHrine 0.5mg in NSS INFIL SCH (13:53)
[2024-03-10] MEDS: ORTHO JOINT ANESTHETIC ONE (13:53)
[2024-03-10] MEDS: TRANEXAMIC ACID 1,000 MG **IV Intra-op IV SCH (14:02)
--- NOTE | 2024-03-10 15:00 | Operative Report ---
PG Post Operative Report Pre & Post Diagnosis Operation Date: 03/10/24 12:30 Pre-Op Diagnosis: Right Knee Degenerative Joint Disease Post-Op Diagnosis: Right Knee Degenerative Joint Disease I identified the patient and participated in the time-out.: Yes Procedure Operation Date: 03/10/24 12:30 Actual Procedures p Right Total Knee Arthroplasty, Cemented(Right) - Leandro Navarro MD Surgeon Leandro Navarro MD Resident Physician Osmani Cote PA-C Estimated Blood Loss 50 Findings Consistent with Post-Op Diagnosis Operative findings reveal advanced right knee DJD. She had extensive grade 4 [id number] disease of the medial and patellofemoral compartments. She had a varus deformity to her knee with a moderate-sized knee joint effusion. Specimens Right knee sent for pathology. Anesthesia Type Spinal MAC Complications none Disposition Accompanied Patient To Recovery: No Indications Patient is a 58-year-old female whose had a several year history of increasing bilateral knee pain discomfort describes gotten worse over time. Is been through extensive conservative care which became less successful over time. She had her left knee replaced back in June and is done quite well with this. She would like to proceed with right total knee arthroplasty. Description of Procedure Operative implants consist of: 1. Biomet Vanguard size 60 right posterior stabilized femoral component. 2. Biomet size 63 tibial tray. 3. 10 mm posterior stabilized polyethylene insert. 4. 28 x 8 all poly patella. The patient was taken the op room, identified, placed on the operating table in the supine position. All contact areas were appropriately padded. IV antibiotics fibra anesthesia team. A spinal anesthetic and adductor canal block had been provided in the holding area. Lyons catheter was placed in sterile fashion. Right Tetrick was then placed. The right lower extremity was then prepped and draped in usual sterile fashion. The right leg was elevated exsanguinated with use of an Esmarch and turn was placed at 300 mmHg. An anterior approach of the right knee was then performed to longitudinal incision centered over the patella. Sharp dissection was carried through subcutaneous tissue down to the extensor mechanism. A medial parapatellar arthrotomy incision was made. Some subperiosteal dissection was carried out medially. The fat pad was dissected from Neath patella tendon. The lateral patellofemoral ligament was released. Patella subluxated laterally and the knee was flexed. The osteophytes taken off distal femur. The ACL and PCL were then released from the distal femur and the tibia subluxated anteriorly. The external treatment LYMErix then placed on the anterior face of the tibia and adjusted 12 mm medially. The proximal tibial cut was made remove about a millimeter bone from the medial side. Tibia sized to size 63. Attention drawn the femur. The distal femur stem with a sharp drill. Intramedullary canal was suction. A right 5 degree valgus cutting guide was placed. The distal femoral cutting block was pinned in place. This femoral cut was made to take an additional 3 mm of bone off distal femur. The femur was then sized to a size 60. We did downsize this just slightly. The AP cutting block was pinned parallel to the epicondylar axis which was 3 degrees of external rotation. The anterior cut, anterior chamfer, posterior cut, posterior chamfer cuts were made. The box cutting guide was placed and adjust slight lateral and the box cut was made. The knee was flexed. The remnants of the medial and lateral menisci were excised. The osteophytes taken off the posterior aspect the femur. A trial femoral component was placed. The tibial tray was pinned Miriam external rotation and the drill and stem punch were used to create defect in proximal tibia for the tibial tray. Knee was then trialed and the 10 mm insert fit most appropriately. Attention drawn the patella. The patella was cleaned of all soft tissues. Patella thickness measured about 18 mm in thickness was cut down to 12. Sized to a size 28 patella. The locals were drilled for the 28 patella. The lateral osteophytes removed. Patella button was placed. Knee was taken through range of motion and the patella tracked nicely with no thumbs test. Attention drawn to place the permanent components. All trial components were removed. A bone plug was placed into this femur limit blood loss. A double batch [place] G cement was mixed. A Biomet Vanguard size 60 right posterior stabilized femoral component, size 63 tibial tray, 10 mm post stabilized polyethylene insert, and a 28 x 8 all poly patella then cemented in place. The knee was brought out into full extension till cement hardened. Final cement check was then performed. The pericapsular tissues were injected with a total of 100 cc of Ortho mix. The patient did receive 1 g tranexamic acid. The tourniquet was then let down for final tourniquet time of 49 minutes. Hemostasis assured use electrocautery. Extensor Meclomen then closed with combination 1 PDS suture and 1 Vicryl suture in [id number] fashion. Extensor Meclomen checked found to be intact and subcutaneous tissues then closed with 2 Dexon suture in a buried interrupted fashion skin was closed skin libia. Leg was then cleaned and dried and sterile dressed with Xeroform, 4 fours, sterile cast padding, Maycol bandage were applied. Patient then transferred to the recovery room in stable condition. Patient tolerated the procedure well and there were no complications. Osmani Cote, my physician assistant chief train dispatcher, was present for the entire procedure. His assistance was essential and required for appropriate patient positioning, prepping and draping, surgical exposure, performing the technical details of the operation, placement the implants, closure of the wound, and placement of the sterile bandage. I attest to the content of the Intraoperative Record and any orders documented therein. Any exceptions are noted below.
--- NOTE | 2024-03-10 15:13 | Anesthesiology Progress Note ---
Date of Service March 10, 2024 Anesthesia Post Procedure Vital Signs Vital Signs: Temp Pulse Resp BP Pulse Ox O2 Del Method 03/10/24 10:53 98.6 F 82 20 151/91 H 98 Room Air Transfer of Care Handoff Completed per policy Notes Mental Status: alert / awake / arousable and participated in evaluation Patient Amnestic to Procedure: Yes Nausea / Vomiting: adequately controlled Pain: adequately controlled Airway Patency, RR, SpO2: stable & adequate BP & HR: stable & adequate Hydration State: stable & adequate Neuraxial Anesthesia: was administered and sensory block is resolving Anesthetic Complications: no major complications apparent and Pt Satisfied with anesthetic care
[2024-03-10] MEDS ORDERED: bisacodyL 10 MG SUPP PR PRN (16:09)
[2024-03-10] MEDS ORDERED: MAGNESIUM HYDROXIDE SUSP 30 ML UDC PO PRN (16:09)
[2024-03-10] MEDS ORDERED: HYDROmorphone INJ 0.5 MG/0.5 ML SYR IV PRN (16:09)
[2024-03-10] MEDS ORDERED: ALUMINUM/MAGNESIUM SUSP 30 ML UDC PO PRN (16:09)
[2024-03-10] MEDS ORDERED: DOCUSATE SODIUM 100 MG CAP PO PRN (16:09)
[2024-03-10] MEDS ORDERED: diphenhydrAMINE Capsule 25 MG CAP PO PRN (16:09)
[2024-03-10] MEDS ORDERED: NALOXONE HCL 0.4 MG/1 ML VIAL/CARP IV PRN (16:09)
[2024-03-10] MEDS ORDERED: METOCLOPRAMIDE HCL INJ 5 MG/ML 2 ML VIAL IV PRN (16:09)
[2024-03-10] MEDS ORDERED: CETIRIZINE HCL 10 MG TABLET PO PRN (16:15)
[2024-03-10] MEDS: Scopolamine CHECK PATCH PLACEMENT SCH (17:06)
[2024-03-10] MEDS: ASCORBIC ACID 500 MG TAB PO SCH (17:06)
[2024-03-10] MEDS: KETOROLAC 30 MG/ML VIAL IV SCH (17:06)
[2024-03-10] MEDS: traMADol HCL 50 MG TABLET PO PRN (19:44)
[2024-03-10] MEDS: DOCUSATE SODIUM 100 MG CAP PO SCH (20:09)
[2024-03-10] MEDS: SENNA 8.6 MG TAB PO SCH ×2 (20:09)
[2024-03-10] MEDS: TRANEXAMIC ACID / 0.7% NACL 1,000 MG/100 ML BAG IV SCH (20:10)
[2024-03-10] MEDS: ceFAZolin 1000MG 1,000 MG/7.5 ML SYR IV SCH (20:11)
[2024-03-10] MEDS: PRAVASTATIN SOD 10 MG TAB PO SCH (20:11)
[2024-03-10] MEDS: METOPROLOL SUCC 25MG EXT REL TAB PO SCH (20:12)
[2024-03-10] MEDS: ASPIRIN 81 MG ECTAB PO SCH (20:13)
--- OUTSIDE RECORDS SUMMARY | 2024-03-10 20:25 | External Medical Summary | Summary of Care ---
Author Name Unknown Organization [facility] Address [address] [place] [address] Phone [phone] Care Team Providers Care Feed Research Technician Name Role Phone Geetha Santos DO Primary Care Provider Reason for Visit * Reason Comments eRx-Medication Refill Encounter Details Date Type Department Care Team (Late st Contact Info) Description [facility] [address] [place], [place] [id number] Shakir Leavitt MD [address] [place], [place] [id number] Rheumatoid arthritis of multiple sites without rheumatoid factor (HCC) Allergies Active Allergy Reactions Criticality Noted Date Comments Adalimumab High 04/06/2022 Other reaction(s): Rash and itching Other Reaction(s): Rash and itching documented as of this encounter (statuses as of 02/25/2024) Medications Medication Sig Dispensed Refills Start Date End Date Status Estradiol 10 MCG Vaginal Tablet once a week. Twice per week 06/04/2023 Active hydroCHLOROthiazid e 12.5 MG Oral Tablet (Hydrodiuril) Take 1 Tablet by mouth in the morning. 06/04/2023 Active Metoprolol Succinate ER 25 MG Oral Tablet Extended Release 24 Hour (toPROL XL)Indications:HTN , goal below 140/90 Take 1 Tablet by mouth in the morning. 30 Tablet 1 09/11/2023 Active Ondansetron HCl 4 MG Oral Tablet (Zofran) Take 1 Tablet by mouth every 8 hours as needed for Nausea. 30 Tablet 1 12/06/2023 Active Pravastatin Sodium 10 MG Oral Tablet (Pravachol) TAKE 1 TABLET EVERY EVENING 90 Tablet 02/13/2024 Active Losartan Potassium 50 MG Oral Tablet (Cozaar) TAKE 1 TABLET IN THE MORNING 90 Tablet 02/13/2024 Active Venlafaxine HCl ER 37.5 MG Oral Capsule Extended Release 24 Hour (Effexor XR)Indications:Anx iety TAKE 1 CAPSULE IN THE MORNING 90 Capsule 02/13/2024 Active Wegovy 2.4 MG/0.75ML Subcutaneous Solution Auto-injector (Semaglutide-Weigh t Management)Indicat ions:Class 1 obesity due to excess calories with serious comorbidity and body mass index (BMI) of 34.0 to 34.9 in adult Inject 2.4 mg (1 pen) under the skin once a week. 9 mL 1 02/13/2024 Active Rinvoq 15 MG Oral Tablet Extended Release 24 Hour (Upadacitinib ER)Indications:Rhe umatoid arthritis of multiple sites without rheumatoid factor (HCC) TAKE 1 TABLET DAILY 30 Tablet 5 02/25/2024 Active Rinvoq 15 MG Oral Tablet Extended Release 24 Hour (Upadacitinib ER)Indications:Rhe umatoid arthritis of multiple sites without rheumatoid factor (HCC) Take 1 Tablet by mouth daily. 30 Tablet 2 12/13/2023 4 Discontinued documented as of this encounter (statuses as of 02/25/2024) Active Problems Problem Noted Date Diagnosed Date History of left knee replacement 08/21/2023 Elevated blood pressure read ing without diagnosis of hypertension 09/12/2022 Fatty liver 09/12/2022 Left ventricular diastolic dysfunction 3 Depression 09/12/2022 Hyperlipidemia 09/12/2022 Encounter for long-term (current) use of medicat ions 09/12/2022 HTN, goal below 140/90 04/23/2017 Anxiety 04/23/2017 Gastroesophageal reflux disease 04/23/2017 Rheumatoid arthritis of [facility] sites without rheumatoid factor 11/02/2015 IRON DEFIC ANEMIA NOS 05/26/2004 documented as of this encounter (statuses as of 02/25/2024) Resolved Problems Problem Noted Date Diagnosed Date Resolved Date ADVANCE DIRECTIVE INFORMATION 09/19/2004 04/23/2017 Overview: No, Advance Directive brochure given to patient. Rheumatoid arthritis 016 Hypertension 04/23/2017 documented as of this encounter (statuses as of 02/25/2024) Immunizations Name Administration Dates Next Due PPD [...] money to get more. Never true 11/15/2022 Childcare Answer Date Recorded Do you feel overwhelmed with taking care of a child, family member or friend? No 11/15/2022 Does your family need help f inding childcare? (Household - for ages 0-17 years) Not on file 11/15/2022 Clothing Answer Date Recorded Have you been unable to get clothing when it was really needed? No 11/15/2022 Is your family able to get c lothes or diapers when needed? (Household - for ages 0-17 years) Not on file 11/15/2022 Personal Safety Answer Date Recorded Do you feel unsafe or have concerns for your saf ety? No 11/15/2022 Do you have concerns for you r family's safety? (Household - for ages 0-17 years) Not on file 11/15/2022 Utilities Answer Date Recorded Do you have trouble paying y our heating, water, or electric bill? (Adult - for ages 18 years and over) Not on file 11/21/2023 Is your family able to pay t he heat, water, or electric bill? (Household - for ages 0-17 years) Not on file 11/21/2023 Does your family have access to good internet? (Household - for ages 0-17 years) Not on file 11/21/2023 Employment Status Answer Date Recorded Are you unemployed or without regular income? No 11/15/2022 Does the household have a re gular source of income? (Household - for ages 0-17 years) Not on file 11/15/2022 Social Connections Answer Date Recorded How often do you feel lonely or isolated from those around you? (Adult - for ages 18 years and over) Not on file 11/21/2023 Financial Resource Strain Answer Date R ecorded Do you have any trouble payi ng for your medications, or do you think you might in the future? No 11/15/2022 Does your family have troubl e paying for medicine? (Household - for ages 0-17 years) Not on file 11/15/2022 Transportation Needs Answer Date Record ed READ ONLY Do you have troubl e getting a ride to medical visits or work? Never True 11/15/2022 Does your family have a hard time getting a ride to doctors visits? (Household - for ages 0-17 years) Not on file 11/15/2022 Has lack of transportation k ept you from medical appointments, meetings, work, or from getting things needed for daily living? Check all that apply. (Adult - for ages 18 years and over) Not on file 11/15/2022 Do you (or your family) have trouble finding or paying for a ride (transportation)? (Household - for ages 0-17 years) Not on file 11/15/2022 Housing Stability Answer Date Recorded Do you currently live in a s helter or have no steady place to sleep at night? No 11/15/2022 READ ONLY Do you think you a re at risk of becoming homeless? No 11/15/2022 Does your family worry about paying for your home or becoming homeless? (Household - for ages 0-17 years) Not on file 0 11/15/2022 Are you homeless or worried that you might be in the future? (Adult - for ages 18 years and over) Not on file Are you (or your family) ck eless or worried that you might be in the future? (Household - for ages 0-17 years) Not on file Food Insecurity Answer Date Recorded Do you need food for this week? No 11/15/2022 Are you able to get enough f ood for your family? (Household - for ages 0-17 years) Not on file 11/15/2022 Does your family need food t his week? (Household - for ages 0-17 years) Not on file 11/15/2022 Do you always have enough fo od for your family? (Household - for ages 0-17 years) Not on file 11/15/2022 Sex and Gender Information Value Date Recorded Sex Assigned at Female 07/16/2022 8:31 AM EDT Gender Identity Female 07/16/2022 8:31 AM EDT Sexual Orientation Straight 07/16/2022 8: 31 AM EDT Job Start Date Occupation Industry Not on file Not on file Not on file documented as of this encounter Miscellaneous Notes * Telephone Encounter - Michelle Peterson RPh - 02/25/2024 2:56 PM EDTSigned Prescriptions: Disp Refills Rinvoq 15 MG Oral Tablet Extended Release *30 Tab*5 Sig: TAKE 1TABLET DAILYAuthorizing Provider: SHAKIR LEAVITT User: MICHELLE PETERSON * Telephone Encounter - Michelle Peterson RPh - 02/25/2024 2:49 PM EDT Rheumatology: Refill Request(s) Per review of the refill parameters, Medication was refilled Labs scanned in to chart Michelle Peterson RPh [facility] Clinical Pharmacist Rheumatology Department 02/25/2024,2:49 PM * Telephone Encounter - Jayne Chau - 02/24/2024 2:12 PM EDTPending Prescriptions: Disp Refills Rinvoq 15 MG Oral Tablet Extended Release *30 Tab*2 Sig: TAKE 1 TABLET DAILY * Telephone Encounter - Jayne Chau - 02/24/2024 2:11 PM EDT Did you pend patient's preferred pharmacy and medication before forwarding?yes Pharmacy: [facility] [address] Pending Prescriptions: Disp Refills Rinvoq 15 MG Oral Tablet Extended Release*30 Tab*2 Sig: TAKE 1 TABLET DAILY Last Visit: Visit date not found (in office), 12/13/2023 (telemedicine) Next Visit: Visit date not found If no future appointments scheduled, and last appointment is greater than a year ago, please schedule patient for a follow-up appointment Last date the medication was ordered: 12/13/2023 Is this request for a controlled substance?No Urine Drug Screen:No results found for this or any previous visit. Patient Phone Numbers [facility] [phone] Labs: Lab Results Component Value Date/Time CREAT 0.58 (A) 02/13/2024 12:00 AM CREAT 0.7 07/24/2017 07:59 AM POTASSIUM 4.1 02/13/2024 12:00 AM POTASSIUM 3.9 07/24/2017 07:59 AM TSH 1.37 07/16/2022 09:43 AM TSH 1.12 09/19/2004 09:10 AM LDL 105 07/16/2022 09:43 AM LDL 129 07/24/2017 07:59 AM LDL NOT APPLICABLE 07/24/2017 07:59 AM LDLCALC 129 (A) 02/13/2024 12:00 AM ALT 28 02/13/2024 12:00 AM ALT 29 07/24/2017 07:59 AM documented in this encounter Plan of Treatment Upcoming Encounters Date Type Department Care Team (Late st Contact Info) Description 04/03/2024 12:10 PM EST Office Visit [address] [place] [address] Geetha Santos, [address] [place] [address] 08/11/2024 8:20 AM EDT Office Visit Rheumatology [facility] [address] [place], [place] [address] Shakir Leavitt MD [address] [place], [place] [address] Health Maintenance Due Date Last Done Comments HIV Screening 08/30/1978 Hepatitis C Screening 08/30/1981 DTap/Tdap Vaccines (1 - Tdap) 08/30/1982 Cologuard 08/30/2008 Fecal Occult Blood Test 08/30/2008 Sigmoidoscopy 08/30/2008 Zoster Vaccines (1 of 2) 08/30/2013 Depression Monitoring 03/27/2018 03/27/2017 COVID-19 Vaccine (2 - season) 2024 03/22/2021 Influenza Vaccine (FLU shot) (#1) 2024 Mammogram 06/28/2024 06/28/2023, 06/21/2022 GFR 02/12/2025 02/13/2024, 05/06, 07/16/2022, Additional history exists Albumin/Creatinine Ratio 07/16/2025 07/16/2022 Colonoscopy 05/06/2026 05/06/2016 Colorectal Cancer Screening 05/06/2026 Diabetes Screening 02/12/2027 02/13/2024, 0 05/15/2023, 07/16/2022, Additional history exists Lipid Panel 02/12/2029 02/13/2024, 07/04, 07/24/2017, Additional history exists HPV (Gardasil) Vaccine Aged Out No lo nger eligible based on patient's age to complete this topic Hepatitis B Vaccine Aged Out No longe r eligible based on patient's age to complete this topic MENINGOCOCCAL (MENACTRA/MENVEO) Aged Out No longer eligible based on patient's age to complete this topic Pneumococcal Vaccine: Pediatrics (0 to 5 Years) and At-Risk Patients (6 to 64 Years) Aged Out No longer eligible based on patient's age to complete this topic documented as of this encounter Medical Devices Not on filedocumented as of this encounter Visit Diagnoses Diagnosis Rheumatoid arthritis of multiple sites without rheumatoid factor (HCC) Rheumatoid arthritis documented in this encounter Care Teams Feed Research Technician Relationship Specialty Start Date End Date Geetha Santos DO [address] [place] [address] PCP - General Family Medicine 07/16/22 documented as of this encounter
--- OUTSIDE RECORDS SUMMARY | 2024-03-10 20:25 | External Medical Summary | Summary of Care ---
Author Name Unknown Organization [facility] Address [address] [place] [address] Phone [phone] Care Team Providers Care Paperhanger Pipe Name Role Phone Geetha Santos DO Primary Care Provider [phone] Encounter Details Date Type Department Care Team (Late st Contact Info) Description 02/13/2024 Result Scan Unspecified Department <No scans attached> Allergies Active Allergy Reactions Criticality Noted Date Comments Adalimumab High 04/06/2022 Other reaction(s): Rash and itching Other Reaction(s): Rash and itching documented as of this encounter (statuses as of 02/24/2024) Medications Medication Sig Dispensed Refills Start Date End Date Status Estradiol 10 MCG Vaginal Tablet once a week. Twice per week 06/04/2023 Active hydroCHLOROthiazide 12.5 MG Oral Tablet (Hydrodiuril) Take 1 Tablet by mouth in the morning. 06/04/2023 Active Metoprolol Succinate ER 25 MG Oral Tablet Extended Release 24 Hour (toPROL XL)Indications:HTN, goal below 140/90 Take 1 Tablet by mouth in the morning. 30 Tablet 1 09/11/2023 Active Ondansetron HCl 4 MG Oral Tablet (Zofran) Take 1 Tablet by mouth every 8 hours as needed for Nausea. 30 Tablet 1 12/06/2023 Active Rinvoq 15 MG Oral Tablet Extended Release 24 Hour (Upadacitinib ER)Indications:Rheuma toid arthritis of multiple sites without rheumatoid factor (HCC) Take 1 Tablet by mouth daily. 30 Tablet 2 12/13/2023 Active Pravastatin Sodium 10 MG Oral Tablet (Pravachol) TAKE 1 TABLET EVERY EVENING 90 Tablet 02/13/2024 Active Losartan Potassium 50 MG Oral Tablet (Cozaar) TAKE 1 TABLET IN THE MORNING 90 Tablet 02/13/2024 Active Venlafaxine HCl ER 37.5 MG Oral Capsule Extended Release 24 Hour (Effexor XR)Indications:Anxiet y TAKE 1 CAPSULE IN THE MORNING 90 Capsule 02/13/2024 Active Wegovy 2.4 MG/0.75ML Subcutaneous Solution Auto-injector (Semaglutide-Weight Management)Indication s:Class 1 obesity due to excess calories with serious comorbidity and body mass index (BMI) of 34.0 to 34.9 in adult Inject 2.4 mg (1 pen) under the skin once a week. 9 mL 1 02/13/2024 Active documented as of this encounter (statuses as of 02/24/2024) Active Problems Problem Noted Date Diagnosed Date History of left knee replacement 08/21/2023 Elevated blood pressure read ing without diagnosis of hypertension 09/12/2022 Fatty liver 09/12/2022 Left ventricular diastolic dysfunction Depression 09/12/2022 Hyperlipidemia 09/12/2022 Encounter for long-term (current) use of medicat ions 09/12/2022 HTN, goal below 140/90 04/23/2017 Anxiety 04/23/2017 Gastroesophageal reflux disease 04/23/2017 Rheumatoid arthritis of [facility] sites without rheumatoid factor 11/02/2015 IRON DEFIC ANEMIA NOS 05/26/2004 documented as of this encounter (statuses as of 02/24/2024) Resolved Problems Problem Noted Date Diagnosed Date Resolved Date ADVANCE DIRECTIVE INFORMATION 09/19/2004 04/23/2017 Overview: No, Advance Directive brochure given to patient. Rheumatoid arthritis 016 Hypertension 04/23/2017 documented as of this encounter (statuses as of 02/24/2024) Immunizations Name Administration Dates Next Due PPD [...] 11/15/2022 Does the household have a re lar source of income? (Household - for ages [...] Description 04/03/2024 12:10 PM EST Office Visit [facility] [place] [address] [facility] [place] [address] Geetha Santos DO [address] [place] [address] 08/11/2024 8:20 AM EDT Office Visit Rheumatology [facility] [address] [place], [place] [address] Conner Cassidy MD [address] [place], [place] [address] Health Maintenance Due Date Last Done Comments HIV Screening 08/30/1978 Hepatitis C Screening 08/30/1981 DTap/Tdap Vaccines (1 - Tdap) 08/30/1982 Cologuard 08/30/2008 Fecal Occult Blood Test 08/30/2008 Sigmoidoscopy 08/30/2008 Zoster Vaccines (1 of 2) 08/30/2013 Depression Monitoring 03/27/2018 03/27/2017 COVID-19 Vaccine (2 - season) 2024 03/22/2021 Influenza Vaccine (FLU shot) (#1) 2024 GFR 05/15/2024 05/15/2023, 07/04, 07/24/2017, Additional history exists Mammogram 06/28/2024 06/28/2023, 06/21/2022 Albumin/Creatinine Ratio 07/16/2025 07/16/2022 Colonoscopy 05/06/2026 05/06/2016 Colorectal Cancer Screening 05/06/2026 Diabetes Screening 05/15/2026 05/15/2023, 0 07/16/2022, 07/24/2017, Additional history exists Lipid Panel 07/17/2027 07/16/2022, 07/05, 10/18/2005 HPV (Gardasil) Vaccine Aged Out No lo [...] Procedure Name Priority Date/Time Associated Diagnosis Comments OUTSIDE LAB RESULTS 02/13/2024 documented in this encounter Results * OUTSIDE LAB RESULTS (02/13/2024) 02/13/2024 No Physician Data Unknown LABORATORY documented in this encounter Care Teams Paperhanger Pipe Relationship Specialty Start Date End Date Geetha Santos DO [address] [place] [address] PCP - General Family Medicine 07/16/22 documented as of this encounter
--- OUTSIDE RECORDS SUMMARY | 2024-03-10 20:25 | External Medical Summary | Summary of Care ---
Author Name Unknown Organization [facility] Address [address] [place] [address] Phone [phone] Care Team Providers Care Collar Setter Overlock Name Role Phone Geetha Santos DO Primary Care Provider Reason for Visit * Reason Comments Follow Up Dosage Adjustment Via Phone (anticoag Cl inic) Encounter Details Date Type Department Care Team (Late st Contact Info) Description 02/13/2024 2:20 PM EDT Telemedicine Endocrinology [address] [place] [phone] Eduin, Pharmacist Endocrinology [address] [place] [address] Class 1 obesity due to excess calories with serious comorbidity and body mass index (BMI) of 34.0 to 34.9 in adult* Allergies Active Allergy Reactions Criticality Noted Date Comments Adalimumab High 04/06/2022 Other reaction(s): Rash and itching Other Reaction(s): Rash and itching documented as of this encounter (statuses as of 02/13/2024) Medications Medication Sig Dispensed Refills Start Date End Date Status Estradiol 10 MCG Vaginal Tablet once a week. Twice per week 06/04/2023 Active hydroCHLOROthiazi de 12.5 MG Oral Tablet (Hydrodiuril) Take 1 Tablet by mouth in the morning. 06/04/2023 Active Metoprolol Succinate ER 25 MG Oral Tablet Extended Release 24 Hour (toPROL XL)Indications:HT N, goal below 140/90 Take 1 Tablet by mouth in the morning. 30 Tablet 1 09/11/2023 Active Ondansetron HCl 4 MG Oral Tablet (Zofran) Take 1 Tablet by mouth every 8 hours as needed for Nausea. 30 Tablet 1 12/06/2023 Active Rinvoq 15 MG Oral Tablet Extended Release 24 Hour (Upadacitinib ER)Indications:Rh eumatoid arthritis of multiple sites without rheumatoid factor (HCC) Take 1 Tablet by mouth daily. 30 Tablet 2 12/13/2023 Active Wegovy 2.4 MG/0.75ML Subcutaneous Solution Auto-injector (Semaglutide-Weig ht Management)Indica tions:Class 1 obesity due to excess calories with serious comorbidity and body mass index (BMI) of 34.0 to 34.9 in adult Inject 2.4 mg under the skin once a week. 9 mL 1 02/13/2024 Active Venlafaxine HCl ER 37.5 MG Oral Capsule Extended Release 24 Hour (Effexor XR)Indications:An xiety TAKE 1 CAPSULE IN THE MORNING 90 Capsule 1 08/16/2023 4 Discontinued Losartan Potassium 50 MG Oral Tablet (Cozaar) TAKE 1 TABLET IN THE MORNING 90 Tablet 1 08/16/2023 4 Discontinued Pravastatin Sodium 10 MG Oral Tablet (Pravachol) TAKE 1 TABLET EVERY EVENING 90 Tablet 11/14/2023 4 Discontinued Wegovy 2.4 MG/0.75ML Subcutaneous Solution Auto-injector (Semaglutide-Weig ht Management)Indica tions:Class 1 obesity due to excess calories with serious comorbidity and body mass index (BMI) of 34.0 to 34.9 in adult Inject 2.4 mg (1 pen) under the skin once a week. 9 mL 1 12/06/2023 4 Discontinued(Ref ill) documented as of this encounter (statuses as of 02/13/2024) Active Problems Problem Noted Date Diagnosed Date History of left knee replacement 08/21/2023 Elevated blood pressure read ing without diagnosis of hypertension 09/12/2022 Fatty liver 09/12/2022 Left ventricular diastolic dysfunction 3 Depression 09/12/2022 Hyperlipidemia 09/12/2022 Encounter for long-term (current) use of medicat ions 09/12/2022 HTN, goal below 140/90 04/23/2017 Anxiety 04/23/2017 Gastroesophageal reflux disease 04/23/2017 Rheumatoid arthritis of [facility] sites without rheumatoid factor 11/02/2015 IRON DEFIC ANEMIA NOS 05/26/2004 documented as of this encounter (statuses as of 02/13/2024) Resolved Problems Problem Noted Date Diagnosed Date Resolved Date ADVANCE DIRECTIVE INFORMATION 09/19/2004 04/23/2017 Overview: No, Advance Directive brochure given to patient. Rheumatoid arthritis 016 Hypertension 04/23/2017 documented as of this encounter (statuses as of 02/13/2024) Immunizations Name Administration Dates Next Due PPD [...] on file documented as of this encounter Progress Notes * Tosha Jean Baptiste, [facility] - 02/13/2024 1:43 PM EDT GLP-1 Medication Therapy Status Check After connecting to the patient via telephone, the patient was identified by name and date of . Patient was then informed that this was a telephone call only visit. The patient agreed to participate Visit Disposition: Status check Duration: 3 minutes Name: Zoe Reynoso Diagnosis: Obesity Current GLP1 therapy: Wegovy 2.4mg weekly OBJECTIVE Estimated body mass index is 28.17 kg/m as calculated from the following: Height as of 12/06/23: 1.575 m (5' 2"). Weight as of 02/05/24: 69.9 kg (154 lb). BP Readings from Last 3 Encounters: 02/05/24 122/78 12/06/23 120/76 06/05/23 130/86 Hemoglobin AIC Results: No results found for: "HEMOGLOBIN A1C" No results found for: "MICROALBUMIN" MEDICATION USE ASSESSMENT Patient is adherent to current prescribed dose of GLP1 therapy? Yes, patient taking as prescribed Allergic / Local Reactions Reported: No Side Effects Reported: No side effects, tolerating well PLAN The patient was educated on when to contact provider with change of symptoms or tolerability to medication. Continue medication as prescribed. Tosha Jean Baptiste [facility] Clinical Pharmacist Medication Therapy Disease Management 02/13/2024,1:43 PM documented in this encounter Plan of Treatment Upcoming Encounters Date Type Department Care Team (Late st Contact Info) Description 08/11/2024 8:20 AM EDT Office Visit Rheumatology [id number] [place] [address] Conner Cassidy MD [facility] [place] [address] Health Maintenance Due Date Last Done Comments [...] Primary documented in this encounter Care Teams Collar Setter Overlock Relationship Specialty Start Date End Date Geetha Santos DO [address] [place] [address] PCP - General Family Medicine 07/16/22 documented as of this encounter
--- OUTSIDE RECORDS SUMMARY | 2024-03-10 20:25 | External Medical Summary | Summary of Care ---
Author Name Unknown Organization [facility] Address [address] [place] [address] Phone [phone] Care Team Providers Care Van Helper Name Role Phone Geetha Santos DO Primary Care Provider Reason for Visit * Reason Comments Follow Up Dosage Adjustment Via Phone (anticoag Cl inic) Encounter Details Date Type Department Care Team (Late st Contact Info) Description 02/13/2024 2:20 PM EDT Telemedicine Endocrinology [address] [place] [phone] Eduin, Pharmacist Endocrinology [address] [place] [address] Class 1 obesity due to [...] Gastroesophageal reflux disease 04/23/2017 Rheumatoid arthritis of [facility] sites without rheumatoid factor 11/02/2015 [...] encounter Progress Notes * Tosha Jean Baptiste, [facility] - 02/13/2024 1:43 PM EDT GLP-1 Medication [...] Continue medication as prescribed. Tosha Jean Baptiste [facility] Clinical Pharmacist Medication Therapy Disease Management 02/13/2024,1:43 PM documented in this encounter Plan of Treatment Upcoming Encounters Date Type Department Care Team (Late st Contact Info) Description 08/11/2024 8:20 AM EDT Office Visit Rheumatology [id number] [place] [address] Conner Cassidy MD [facility] [address] [place] [address] Health Maintenance Due Date Last Done Comments [...] Primary documented in this encounter Care Teams Van Helper Relationship Specialty Start Date End Date Geetha Santos DO [address] [place] [address] PCP - General Family Medicine 07/16/22 documented as of this encounter
--- OUTSIDE RECORDS SUMMARY | 2024-03-10 20:25 | External Medical Summary | Summary of Care ---
Author Name Unknown Organization [facility] Address [address] [place] [address] Phone [phone] Care Team Providers Care Selector Packer Name Role Phone Yasemin Morfin DO Primary Care Provider [phone] Reason for Visit * Reason Comments eRx-Medication Refill Encounter Details Date Type Department Care Team (Late st Contact Info) Description 02/12/2024 Refill [facility] [address] [place] [address] Yasemin Morfin DO [address] [place] [address] Anxiety Allergies Active Allergy Reactions Criticality Noted Date Comments Adalimumab High 04/06/2022 Other reaction(s): Rash and itching Other Reaction(s): Rash and itching documented as of this encounter (statuses as of 02/15/2024) Medications Medication Sig Dispensed Refills Start Date [...] IN THE MORNING 90 Capsule 02/13/2024 Active Venlafaxine HCl ER 37.5 MG Oral Capsule Extended Release 24 Hour (Effexor XR)Indications:An xiety TAKE 1 CAPSULE IN THE MORNING 90 Capsule 1 08/16/2023 02/13/2024 Discontinued Losartan Potassium 50 MG Oral Tablet (Cozaar) TAKE 1 TABLET IN THE MORNING 90 Tablet 1 08/16/2023 02/13/2024 Discontinued Pravastatin Sodium 10 MG Oral Tablet (Pravachol) TAKE 1 TABLET EVERY EVENING 90 Tablet 11/14/2023 02/13/2024 Discontinued documented as of this encounter (statuses as of 02/15/2024) Active Problems Problem Noted Date Diagnosed Date History of left knee replacement 08/21/2023 Elevated blood pressure read ing without diagnosis of hypertension 09/12/2022 Fatty liver 09/12/2022 Left ventricular diastolic dysfunction Depression 09/12/2022 Hyperlipidemia 09/12/2022 Encounter for long-term (current) use of medicat ions 09/12/2022 HTN, goal below 140/90 04/23/2017 Anxiety 04/23/2017 Gastroesophageal reflux disease 04/23/[address] [facility] without rheumatoid factor 11/02/2015 IRON DEFIC ANEMIA NOS 05/26/2004 documented as of this encounter (statuses as of 02/15/2024) Resolved Problems Problem Noted Date Diagnosed Date Resolved Date ADVANCE DIRECTIVE INFORMATION 09/19/2004 04/23/2017 Overview: No, Advance Directive brochure given to patient. Rheumatoid arthritis 016 Hypertension 04/23/2017 documented as of this encounter (statuses as of 02/15/2024) Immunizations Name Administration Dates Next Due PPD [...] encounter Miscellaneous Notes * Telephone Encounter - Obie Chau - 02/15/2024 9:22 PM EDT Received message from [facility] regarding patient needing an appointment and labs. Patient was notified. Successfully contacted patient and provided [facility] message. * Telephone Encounter - Brittany Sterling RP - 02/13/2024 1:49 PM EDTSigned Prescriptions: Disp Refills Pravastatin Sodium 10 MG Oral Tablet (Prav*90 Tab*0 Sig: TAKE 1 TABLET EVERY EVENING Authorizing Provider: YASEMIN MORFIN Ordering User: BRITTANY STERLING Losartan Potassium 50 MG Oral Tablet (Coza*90 Tab*0 Sig: TAKE 1 TABLET IN THE MORNING Authorizing Provider: YASEMIN MORFIN Ordering User: BRITTANY STERLING Venlafaxine HCl ER 37.5 MG Oral Capsule Ex*90 Cap*0 Sig: TAKE 1 CAPSULE IN THE MORNING Authorizing Provider: YASEMIN MORFIN Ordering User: BRITTANY STERLING * Telephone Encounter - Brittany Sterling RP - 02/13/2024 1:47 PM EDT 3rd attempt for labs Provided 90 days supply with 0 refill. Per refill protocol patient should have routine labs on filewithin past year. Reviewed AMP report, Care Gaps/Health Maintenance, medications list, and for any routine labs typically ordered for this patient. Lab orders placed. Please contact patient to schedule office visit with PRIMARY CARE and advise of labs ordered for blood draw. Recommend patient to fast if able for labs. Patient may still have water and regular medications. Advise to obtain labs before requesting the next refill. Last Visit: 11/23/2022 (in office), Visit date not found (telemedicine) Next Visit: Visit date not found Thank you, Brittany Sterling, PharmD Clinical Pharmacist [facility] 02/13/24 1:47 PM [phone] documented in this encounter Plan of Treatment Upcoming Encounters Date Type Department Care Team (Late st Contact Info) Description 04/03/2024 12:10 PM EST Office Visit [facility] [address] [place] [address] Yasemin Morfin DO [address] [place] [address] 08/11/2024 8:20 AM EDT Office Visit Rheumatology [address] [place] [address] Conner Cassidy MD [address] [place] [address] [place] [address] Health Maintenance Due Date Last Done Comments [...] as of this encounter Visit Diagnoses Diagnosis Anxiety Anxiety state, unspecified documented in this encounter Care Teams Selector Packer Relationship Specialty Start Date End Date Yasemin Morfin DO [address] [place] [address] PCP - General Family Medicine 07/16/22 documented as of this encounter
[2024-03-11 05:59] LABS: Hematocrit (blood only) 30.4 % (37.0-47.0); Hemoglobin 10.6 g/dl (12.0-16.0); Mean Corpuscular Hemoglobin 30.4 pg (25.0-34.0); Mean Corpuscular Hgb Conc 34.9 g/dL (32.0-36.0); Mean Corpuscular Volume 87.1 fL (80.0-100.0); Mean Platelet Volume 9.1 fL (9.4-12.4); Platelet Count 205 K/uL (130-400); RDW Coefficient of Variation 12.5 % (11.5-14.5); RDW Standard Deviation 39.8 fL (36.4-46.3); Red Blood Count 3.49 M/uL (4.20-5.40); White Blood Count 10.91 K/ul (4.8-10.8)
[2024-03-11 06:19] LABS: BUN Creatinine Ratio 29.9 (10-20); Calcium 8.8 mg/dl (8.6-10.3); Creatinine Clr Calc Pharmacy 80.1 ml/min; Potassium 3.6 mmol/L (3.5-5.1)
--- NOTE | 2024-03-11 06:54 | Orthopedic Progress Note ---
Date of Service March 11, 2024 Assessment & Plan (1) Status post total right knee replacement: Pain controlled. d/c planning: she's hoping to go home today. Plan on discharge with home health today after PT. PT/OT wbat dvt prophlyaxis: teds, scd's, aspirin Follow up approx 2 weeks [address] discuss with Dr Ramon Crespo . 58 year old patient POD 1 from right tka. Doing fairly well. Having some pain overnight but reasonably controlled. No other complaints. Review of Systems All systems reviewed & are unremarkable except as noted in HPI & below. Physical Exam .alert and oriented. NAD VSS labs reviewed: hgb 10.6 today Right leg: dressing clean, dry, intact. Able to do straight leg raise. Able to dorsiflex and plantarflex. NVI Results & Data Results & Data Laboratory Results . Diagnostic Findings . PG Care Time/CCT Total # of Minutes Spent Total Time Spent with Patient: Total time spent is greater than 50% in coordination of care (as documented) at patient's floor/unit and/or counseling patient: Coding Level of Care Code 41664 Post Operative Follow-Up Diagnoses Status post total right knee replacement Z96.651
[2024-03-11 07:29] VITALS: BP 104/71; PULSE 68; RESP 18; TEMP 98.2; O2SAT 96
[2024-03-11] MEDS: MULTIVITAMIN TAB PO SCH (07:37)
[2024-03-11] MEDS: LOSARTAN POTASSIUM 50 MG TAB PO SCH (07:37)
[2024-03-11] MEDS: VENLAFAXINE HCL XR 37.5 MG CAPXR PO SCH (07:38)
[2024-03-11] MEDS: hydroCHLOROthiazide 25 MG TAB PO SCH (07:38)
[2024-03-11] MEDS: dexAMETHasone 10 MG in SYRINGE 0 ML IV SCH (07:39)
[2024-03-11] MEDS ORDERED: NON-FORMULARY MEDICATION (Multivitamin Tablet) PO SCH (09:00)
--- NOTE | 2024-03-11 11:10 | XRay Report ---
EXAM: XR knee RT 1 or 2V routine CLINICAL HISTORY: POST OP RT KNEE KFK TECHNIQUE: X-ray of right knee was performed in 2 views: AP and lateral view. COMPARISON: X-ray dated 01/27/2024 FINDINGS: Status post right knee replacement with prosthesis in place, post-surgical changes in the soft tissue and surgical libia seen. No definite evidence of hardware complication. Knee joint effusion with layering, likely due to post-intervention status. No acute osseous abnormalities were seen. Bone density is within normal limits. IMPRESSION: Status post right knee replacement on current x-ray with post-surgical changes. No definite evidence of hardware complication. DISCLAIMER:A subtle bone abnormality or fracture may not be readily apparent on x-rays, thus clinical correlation and further imaging including follow up CT, MRI, or follow up x-rays are advised as needed. Electronically signed by Jonathan Peña 03-11-2024 11:09 AM
--- NOTE | 2024-03-13 14:28 | Discharge Summary ---
Date of Service March 13, 2024 Admission HPI (Per Admitting) . The patient is a 58-year-old female who now presents for surgical treatment of her right knee. She is now about 9 months out from a left knee replacement is done pretty well. She continues to be limited by right knee pain discomfort. Is global pain. The more she is up and on it the more it hurts. It swells more as the day goes on. She is ready to have her knee fixed. Pretty happy with the left knee. Admission Exam (Per Admitting) . Physical examination reveals a pleasant healthy middle-aged female. Examination of the knees reveals the patient ambulates independently. Examination of the left knee reveals a well-healed incision. She got anatomic alignment to the knee. Range of motion 0-1 20. Good straight leg raise. No instability. Examination of the right knee reveals varus alignment to the knee. She is tender over the medial joint line. She got bony hypertrophy medially. Small knee effusion. Range of motion about 5-1 20. No instability. No pain with hip motion. Principal Diagnosis Same as "Discharge Diagnosis" noted below under Discharge Instructions. Discharge Exam .alert and oriented. NAD VSS labs reviewed: hgb 10.6 today Right leg: dressing clean, dry, intact. Able to do straight leg raise. Able to dorsiflex and plantarflex. NVI Discharge Data Procedures Performed Operation Date: 03/10/24 12:30 Actual Procedures p Right Total Knee Arthroplasty, Cemented(Right) - Leandro Navarro MD Ordered Studies 03/10/24 05:00 US - OR guided needle placemen Routine Hospital Course (1) Status post total right knee replacement: This is a 58 year old patient admitted on 03/10/24 and underwent total knee arthroplasty. She tolerated the procedure well and there were no complications. Transferred to the PACU post op and later to the orthopedic floor for further care. She was given ancef for antibiotic prophylaxis. She was also given LJ stockings, SCDs, and aspirin for DVT prophylaxis. Hemoglobin, hematocrit, and vital signs were monitored during her hospital stay and remained stable. Did not require any blood transfusions. There were no complications during her hospital stay. By post op day #1 the patient was tolerating a regular diet, pain was reasonably controlled with oral pain medicine, and she was participating in physical therapy. On post op day #1 the patient was discharged home and set up with home health care. She was given printed discharge instructions including prescriptions for extra strength tylenol, aspirin, cefadroxil, ketorolac, zofran, senokot, and tramadol. Continue physical therapy, weight bearing as tolerated. Continue LJ stockings. Follow up approximately 2 weeks post op or sooner if there are problems or concerns. Discharge Plan Discharge Items Patient Disposition: Home - Home Health Services Reason For Visit: Right Knee Degenerative Joint Disease Discharge Diagnosis: Right Knee Replacement Activity: Per Instructions section Weightbearing: Full weightbearing Non-emergency contact: Surgeon Call non-emergency contact if: you have any medication questions Follow-up/Referrals: Geetha Santos DO [Primary Care Provider] - Diet: Regular Addtl Attending Provider Instructions: ACTIVITY RECOMMENDATIONS: Diet: * You may resume previous diet. Physical Therapy: * You will go to physical therapy three times each week for four to six weeks after your surgery in order to regain your knee range of motion and to retrain your knee to work properly. * It is just as important to make sure you are getting your knee perfectly straight as it is to regain your knee bend. * Taking a pain pill an hour before therapy can help you have a more productive and comfortable therapy session. Home Exercise: * You were shown a series of exercises (heel props, heel slides, etc.) in the hospital. Do these exercises three to four times each day including the exercises you were shown in physical therapy. Walking: * Get up and walk several times each day. For the first four weeks, try not to stand or walk for more than one hour at a time. If you do stand or walk for more than one hour, you will not hurt anything, but your knee and leg will likely swell. * As you feel comfortable, you may change from the walker or crutches to a cane and then to independent walking. MEDICATIONS: New Medicine: * You will likely be taking one or more of these medications: 1. Tramadol - A quick and shorter-acting pain medication. Take one to two tablets every six hours to lessen your pain. 2. Aspirin - Thins your blood to lessen the chance of forming a blood clot. * The most common side effects of pain medicine and iron are nausea and constipation. If nausea or constipation is too much of a problem or if you have any questions about your new medicines or doses, call [facility] at . We will try to help you manage these issues. "VERY IMPORTANT TO READ AND REVIEW" Pain: * The immediate post-operative period after knee replacement surgery is often quite painful. * You are given a prescription for pain medicine. You should take it, as directed, when you need it, especially before physical therapy and before going to bed. Pain that interferes with sleep is very common and can last several months. * You will likely need pain medicine for the first four to six weeks. It will not stop all of the pain. The pain will lessen and as you feel better, you may change to milder pain medicine such as Tylenol. * The most common side effects of pain medicine are nausea and constipation, so don't take more than you need. SPECIAL CARE INSTRUCTIONS: TEDs/Elastic Stockings: * The white elastic stockings help limit swelling and prevent blood clots from forming in your legs. The more you wear them, the more they work. * Wear them for six weeks after knee replacement surgery and four weeks after partial knee replacement. Incision Site Care: * Remove dressing postoperative day 2 and then shower. Keep direct shower pressure off the incision site. * After showering, cover bala with dry gauze and change daily or more frequently if the dressing is getting saturated with drainage. * Use the LJ stockings to hold dressing in place. DO NOT apply tape on the skin. * May completely stop using bandage if wound is dry and no drainage * Bala are removed between 2 and 3 weeks post-op. If your follow-up appointment is made before 2 weeks, please have your appointment re- scheduled. It is too early to remove the bala. Prevention of Infection: * Take antibiotics one hour before any dental cleaning, dental work, urological procedure, gastrointestinal procedure or any invasive surgery in order to prevent your new joint from getting infected. * You may get the antibiotics from the doctor performing the procedure or you may call our office at [phone] before and we will call in a prescription to the pharmacy of your choice. Things to Watch For: * Drainage from the incision site that occurs more than one week after your surgery. * Severely increased knee/leg pain or swelling. * Increased redness at the incision site. * Fever above 102 degrees Fahrenheit. * Unusual chest pain or shortness of breath. * Unusual pain or burning with urination. Call [facility] at [phone] with any of the above problems or if you have any questions about your medicines or recovery. FOLLOW UP VISIT: Make an appointment to see your doctor for approximately two weeks after surgery for a progress check and staple removal by calling the office at [phone]. Pending Studies at Discharge: No Stand-Alone Forms: My [facility], Smoking Cessation Medications and DC Order Prescriptions: Continued acetaminophen [Tylenol Extra Strength] 500 mg tablet 1,000 mg PO TID 30 Days Qty: 180 0RF Rx Instructions: Take 3 times per day to lessen pain. estradiol [Yuvafem] 10 mcg tablet 10 mcg vaginal 2XWK Qty: 24 3RF tramadol 50 mg tablet 50 - 100 mg PO Q6 PRN (Reason: pain) Qty: 40 0RF Rx Instructions: Take as needed for pain ondansetron 4 mg tablet,disintegrating 4 mg PO Q8 PRN (Reason: nausea) Qty: 20 1RF Rx Instructions: Take as needed for nausea ketorolac 10 mg tablet 10 mg PO Q6 5 Days Qty: 20 0RF Rx Instructions: Take 4 times per day with food for 5 days to lessen pain and swelling. sennosides [Senokot] 8.6 mg tablet 8.6 mg PO BID 14 Days Qty: 28 0RF Rx Instructions: Take two times a day to prevent/treat constipation aspirin [Hansel Low Dose Aspirin] 81 mg tablet,delayed release (DR/EC) 81 mg PO BID 45 Days Qty: 90 0RF Rx Instructions: Take to prevent blood clots. cefadroxil 500 mg capsule 500 mg PO BID 7 Days Qty: 14 0RF Rx Instructions: Take 1 cap twice a day to prevent infection (DME) pen needle, diabetic [BD Ultra-Fine Micro Pen Needle] 32 gauge x 1/4" needle See Rx Instructions .ROUTE .MEDSUPPLY Qty: 50 Rx Instructions: As directed venlafaxine [Effexor XR] 37.5 mg capsule,extended release 24hr 37.5 mg PO QAM multivitamin Tablet 1 tab PO QAM losartan 100 mg tablet 50 mg PO QAM cetirizine 5 mg tablet 5 mg PO DAILY PRN (Reason: Allergy Symptoms) metoprolol succinate 25 mg Capsule,Sprinkle,Er 24hr 25 mg PO HS pravastatin 10 mg tablet 10 mg PO HS docusate sodium [Stool Softener] 100 mg Capsule 100 mg PO DAILY PRN (Reason: Constipation) Wegovy 2.4 mg/0.75 mL pen injector 2.4 mg SUBCUT Q7D Patient Comments: sundays Rinvoq 15 mg Tablet Extended Release 24 Hr 15 mg PO QAM hydrochlorothiazide 12.5 mg Capsule 12.5 mg PO DAILY Admission Data Admit Date/Time: 03/10/24 14:53 Attending Provider: Leandro Navarro Admit Provider: Leandro Navarro Primary Care Provider: Geetha Santos Other Interventions: Discharge Summary Assessment (RN) Last Done: 03/11/24 09:32
== END 2024-03-11 09:56 | disposition home health service (06) ==
LOC: 3E 10:20 → ASU 10:20